=== PATIENT | male | born 1970 | race Caucasian/White ===

== ENCOUNTER 2016-10-20 21:06 | Emergency (ER) | payer BC ==
[2016-10-20 21:23] VITALS: O2SAT 97
[2016-10-20] MEDS ORDERED: Sodium Chloride 0.9% 1000 ML 1,000 ML IV STA (21:34)
--- NOTE | 2016-10-20 21:39 | ERPHSYRPT ---
- History of Present Illness Time Seen by Provider: 10/20/16 21:36 Source: patient, family Exam Limitations: no limitations Patient Subjective Stated Complaint: pt states while sitting on the couch at home, his heart began racing and he was having palpitations. states he had his bp taken and it was 160/120 manually by nurse while he was picking his daughter up Triage Nursing Assessment: pt alert and oriented,a snwers questions approp. pt ambulatoryw ith steady gait noted. respirations nonlabored with lungs cta. pupils equal and reactive. heart rate 72 sinus rhythm on monitor at this time. Physician History: pt states while sitting on the couch at home, his heart began racing and he was having palpitations. states he had his bp taken and it was 160/120 manually by nurse while he was picking his daughter up Timing/Duration: today Associated Symptoms: chest pain Allergies/Adverse Reactions: iv dye Allergy (Intermediate, Uncoded 10/20/16 21:32) Rash Home Medications: Aspirin 81 mg PO DAILY 01/23/13 [History] Ascorbic Acid [Vitamin C] 1,000 mg PO DAILY 09/13/16 [History] Fexofenadine HCl [Giana] 60 mg PO DAILY 09/13/16 [History] Garlic 1 each PO DAILY 09/13/16 [History] Gemfibrozil [Lopid] 600 mg PO BID 09/13/16 [History] Lactobacillus Acidophilus [Probiotic] 1 each PO BID 09/13/16 [History] Zinc 50 mg PO DAILY 09/13/16 [History] Hx Tetanus, Diphtheria Vaccination/Date Given: Yes Hx Influenza Vaccination/Date Given: No Hx Pneumococcal Vaccination/Date Given: No Immunizations Up to Date: Yes - Review of Systems Constitutional: No Fever, No Chills Eyes: No Symptoms Ears, Nose, & Throat: No Symptoms Respiratory: No Cough, No Dyspnea Cardiac: Chest Pain, No Edema, No Syncope Abdominal/Gastrointestinal: No Abdominal Pain, No Nausea, No Vomiting, No Diarrhea Genitourinary Symptoms: No Dysuria Musculoskeletal: No Back Pain, No Neck Pain Skin: No Rash Neurological: No Dizziness, No Focal Weakness, No Sensory Changes Psychological: No Symptoms Endocrine: No Symptoms All Other Systems: Reviewed and Negative - Past Medical History Pertinent Past Medical History: Yes Neurological History: No Pertinent History ENT History: No Pertinent History Cardiac History: High Cholesterol, Hypertension Respiratory History: Sleep Apnea Endocrine Medical History: No Pertinent History Musculoskeletal History: Arthritis GI Medical History: GERD, Gallbladder Disease, Ulcer, Other History: No Pertinent History Psycho-Social History: No Pertinent History Male Reproductive Disorders: No Pertinent History Other Medical History: hiatal hernia - Past Surgical History Past Surgical History: Yes Neuro Surgical History: No Pertinent History Cardiac: Cardiac Catheterization Respiratory: No Pertinent History Gastrointestinal: Appendectomy, Cholecystectomy Genitourinary: No Pertinent History Musculoskeletal: Orthopedic Surgery Male Surgical History: Vasectomy Other Surgical History: tendon repair patella - Social History Smoking Status: Former smoker Exposure to second hand smoke: No Drug Use: none Patient Lives Alone: No - Nursing Vital Signs Nursing Vital Signs: Initial Vital Signs Temperature 98.0 F Temperature Source Oral Pulse Rate 71 Respiratory Rate 16 Blood Pressure [] 126/86 Pain Intensity 0 - Physical Exam General Appearance: no apparent distress, alert Eye Exam: PERRL/EOMI, eyes nml inspection Ears, Nose, Throat Exam: normal ENT inspection, TMs normal, pharynx normal, moist mucous membranes Neck Exam: normal inspection, non-tender, supple, full range of motion Respiratory Exam: normal breath sounds, lungs clear, No respiratory distress Cardiovascular Exam: regular rate/rhythm, normal heart sounds, normal peripheral pulses Gastrointestinal/Abdomen Exam: soft, normal bowel sounds, No tenderness, No mass Back Exam: normal inspection, normal range of motion, No CVA tenderness, No vertebral tenderness Extremity Exam: normal inspection, normal range of motion, pelvis stable Neurologic Exam: alert, oriented x 3, cooperative, normal mood/affect, nml cerebellar function, nml station & gait, sensation nml, No motor deficits Skin Exam: normal color, warm, dry, No rash Lymphatic Exam: No adenopathy SpO2: 97 Oxygen Delivery: Room Air - Course Nursing assessment & vital signs reviewed: Yes - Radiology Exams Chest X-ray Interpretation: Reviewed by me Ordered Tests: Active Orders 24 hr Category Date Time Status Inspector Experimental Assembly STAT Care 10/20/16 21:34 Active EKG-ER Only STAT Care 10/20/16 21:34 Active Oxygen-ED Only NASAL CANNULA 2 lpm Care 10/20/16 21:34 Active CHEST 1 VIEW (PORTABLE) Stat Exams 10/20/16 21:35 Taken CBC W DIFF Stat Lab 10/20/16 21:35 Completed CMP Stat Lab 10/20/16 21:35 Completed TROPONIN Stat Lab 10/20/16 21:35 Completed Medication Summary Discontinued Medications Generic Name Dose Route Start Last Admin Trade Name Ayush PRN Reason Stop Dose Admin Sodium Chloride 1,000 mls @ 999 mls/hr 10/20/16 21:34 10/20/16 21:47 Sodium Chloride 0.9% 1000 Ml IV 10/20/16 22:34 999 mls/hr .Q1H1M STA Administration Sodium Chloride Confirm 10/20/16 21:42 Sodium Chloride 0.9% 1000 Ml Administered 10/20/16 21:43 Dose 1,000 mls @ ud .ROUTE .STK-MED ONE Metoprolol Tartrate 50 mg 10/20/16 21:43 10/20/16 21:47 Lopressor 50 Mg PO 10/20/16 21:44 50 mg STAT ONE Administration Metoprolol Tartrate Confirm 10/20/16 21:46 Lopressor 50 Mg Administered 10/20/16 21:47 Dose 50 mg .ROUTE .STK-MED ONE Lab/Rad Data: Laboratory Result Diagrams 10/20/16 21:35 10/20/16 21:35 Laboratory Results 10/20/16 10/20/16 10/20/16 Range/Units 21:35 21:35 21:35 WBC 7.1 (4.0-10.5) K/mm3 RBC 5.42 (4.1-5.6) M/mm3 Hgb 16.3 (12.5-18.0) gm/dl Hct 45.8 (42-50) % MCV 84.5 (78-100) fl MCH 30.1 (26-32) pg MCHC 35.6 (32-36) g/dl RDW 13.9 (11.5-14.0) % Plt Count 219 (150-450) K/mm3 MPV 10.2 H (6-9.5) fl Gran % 59.4 (36.0-66.0) % Lymphocytes % 29.3 (24.0-44.0) % Monocytes % 8.9 (0.0-12.0) % Eosinophils % 2.0 (0.00-5.0) % Basophils % 0.4 (0.0-0.4) % Basophils # 0.03 (0-0.4) Sodium 139 (136-145) mEq/L Potassium 3.4 L (3.5-5.1) mEq/L Chloride 102 (98-107) mEq/L Carbon Dioxide 24.6 (21-32) mEq/L Anion Gap 15.4 H (5-15) MEQ/L BUN 17 (9-20) mg/dL Creatinine 1.07 (0.55-1.30) mg/dl Estimated GFR > 60 ML/MIN Glucose 153 H (70-110) MG/DL Calcium 8.2 L (8.5-10.1) mg/dL Total Bilirubin 0.30 (0.2-1.0) mg/dL AST 33 (15-37) U/L ALT 38 (12-78) U/L Alkaline Phosphatase 62 (46-116) U/L Troponin I < 0.017 (0.000-0.056) ng/ml Serum Total Protein 7.5 (6.4-8.2) gm/dL Albumin 4.1 (3.4-5.0) g/dL - Progress Progress: improved Progress Note: 10/20/16 22:43 BP is 128/86. patient is feeling better Counseled pt/family regarding: lab results, diagnosis, need for follow-up, rad results - Departure Time of Disposition: 22:43 Departure Disposition: Home Clinical Impression: Hypertension, poor control Condition: Stable Critical Care Time: Yes Critical Care Time(excluding separately billable procedures): 30-74 minutes Referrals: PATY STALLWORTH [Primary Care Provider] - Instructions: Malignant Hypertension, Hypertension Additional Instructions: Please follow the instructions given to you. Please take your medication as prescribed if given. If symptoms recur or get worse, come back to the emergency room if you cannot reach your primary care physician, or call your primary care physician for an appointment. Again if your symptoms get worse, come back to the emergency room. Thanks for visiting emergency room, and let us take care of you. Prescriptions: Metoprolol Tartrate 25 mg [Lopressor 25MG Tab] 25 mg PO QHS #30 tab Lisinopril 5 mg [Zestril 5 MG] 5 mg PO QAM #30 tablet
[2016-10-20] MEDS ORDERED: Sodium Chloride 0.9% 1000 ML 1,000 ML ONE (21:42)
[2016-10-20] MEDS ORDERED: Lopressor 50 MG PO ONE (21:43)
[2016-10-20] MEDS ORDERED: Lopressor 50 MG ONE (21:46)
[2016-10-20 21:49] LABS: BASOPHIL % 0.4 % (0.0-0.4); Granulocytes % 59.4 % (36.0-66.0); Lymphocytes % 29.3 % (24.0-44.0); Mean Cell Volume 84.5 fl (78-100); Mean Corpuscular Hemoglobin 30.1 pg (26-32); Mean Platelet Volume 10.2 fl (6-9.5); Monocytes % 8.9 % (0.0-12.0); Platelet Count 219 K/mm3 (150-450); Red Blood Count 5.42 M/mm3 (4.1-5.6); Red Cell Distribution Width 13.9 % (11.5-14.0); White Blood Count 7.1 K/mm3 (4.0-10.5)
[2016-10-20 22:05] LABS: ALBUMIN 4.1 g/dL (3.4-5.0); ALKALINE PHOSPHATASE 62 U/L (46-116); ANION GAP 15.4 MEQ/L (5-15); BLOOD UREA NITROGEN 17 mg/dL (9-20); CHLORIDE 102 mEq/L (98-107); Carbon Dioxide 24.6 mEq/L (21-32); Glucose 153 MG/DL (70-110); Potassium 3.4 mEq/L (3.5-5.1); SODIUM 139 mEq/L (136-145)
[2016-10-20 22:16] LABS: SGPT/ALT 38 U/L (12-78)
[2016-10-20 22:28] VITALS: BP 126/86; PULSE 71
[2016-10-20 22:30] LABS: SGOT/AST 33 U/L (15-37)
[2016-10-20 22:38] LABS: Total Protein 7.5 gm/dL (6.4-8.2)
--- NOTE | 2016-10-21 08:10 | XRAY ---
Indication: Chest pain and elevated blood pressure. Comparison: September 02, 2013. Portable chest again demonstrates normal heart, lungs, and bony thorax.
== END 2016-10-20 23:00 | disposition home or self-care (01) ==
LOC: ED 21:06
DX: I10 Essential (primary) hypertension (principal); E78.00 Pure hypercholesterolemia, unspecified
CPT/HCPCS: 36000; 36415; 71010; 80053; 84484; 85025; 93005; 93041; 96360; 99284; A9270-GY

== ENCOUNTER 2016-11-15 07:57 | Day surgery (SDC) | payer BC ==
[2016-11-15] MEDS ORDERED: Lactated Ringers 1,000 ML IV SCH (09:00)
[2016-11-15 09:06] LABS: Mean Cell Volume 84.4 fl (78-100); Mean Platelet Volume 10.4 fl (6-9.5); Platelet Count 168 K/mm3 (150-450); Red Blood Count 5.63 M/mm3 (4.1-5.6); Red Cell Distribution Width 13.6 % (11.5-14.0); White Blood Count 6.3 K/mm3 (4.0-10.5)
[2016-11-15 09:07] LABS: Mean Corpuscular Hemoglobin 28.9 pg (26-32)
[2016-11-15 09:08] LABS: ANION GAP 12.7 MEQ/L (5-15); BLOOD UREA NITROGEN 9 mg/dL (9-20); CHLORIDE 103 mEq/L (98-107); Carbon Dioxide 28.1 mEq/L (21-32); Glucose 108 MG/DL (70-110); Potassium 3.8 mEq/L (3.5-5.1); SODIUM 140 mEq/L (136-145)
[2016-11-15 10:56] VITALS: O2SAT 95
[2016-11-15 11:13] VITALS: BP 119/72; PULSE 64
[2016-11-15] MEDS ORDERED: Lactated Ringers 1,000 ML IV ONE (13:47)
[2016-11-15] MEDS ORDERED: Ketamine HCl 50 MG/ML IV ONE (15:00)
[2016-11-15] MEDS ORDERED: DIPRIVAN 200 MG/20 ML IV ONE (15:00)
--- NOTE | 2016-11-16 08:01 | OP ---
PROCEDURE DATE/TIME: 11/15/201624 PREOPERATIVE DIAGNOSES: 1) Diarrhea. 2) Constipation. 3) GI bleeding. 4) Abdominal pain. POSTOPERATIVE DIAGNOSES: 1) Gastric diverticulum. 2) Duodenal polyp. 3) Moderate gastritis. 4) Moderate hiatal hernia approximately 4 cm sliding. 5) Normal colon. PROCEDURES: 1) EGD with hot forceps polypectomy and cold biopsy. 2) Colonoscopy to cecum. PROCEDURE PERFORMED BY: Molly Streeter M.D. ANESTHESIA: MAC. ESTIMATED BLOOD LOSS: Minimal. COMPLICATIONS: None. SPECIMENS: 1) Gastric diverticulum/mass biopsy. 2) Antral biopsy rule out Helicobacter pylori. 3) Duodenal polyp biopsy. PROCEDURE DETAILS: This is a 46 year-old gentleman who has had a wealth of GI symptoms over the past few years. He has had had some intermittent diarrhea and constipation. He has also noticed some intermittent GI bleeding and he has also had some abdominal pain on and off. He recently had Romy infection which he states he was treated by his primary care physician and his bleeding and abdominal pain has actually improved since being treated for this last week. However we will still proceed with the scope, EGD and colonoscopy due to his symptoms. He understands all of the risks, benefits, alternatives to the procedure. I did see him preoperatively and any remaining questions were answered and agreed to proceed. DESCRIPTION OF PROCEDURE: He was then placed in the left lateral decubitus position. A complete time out was performed. The scope was then entered into the mouth, oropharynx directly down into the esophagus, stomach and then into the duodenum. The second portion of the duodenum looked normal. In the first portion of the duodenum immediately past the pylorus there was a polypoid mucosal lesion that appeared to be benign but it was taken with hot forceps in its entirety and sent to pathology. This site was hemostatic after biopsy. There were no other lesions here and nothing was concerning for a malignancy. The scope was withdrawn back into the stomach. In the stomach in the upper portion of the body there is a small diverticulum this does have a slight hump to it and so I did take a biopsy of this site and it was labeled "gastric body diverticulum/mass biopsy" and we will check the pathology to make sure that this site is okay. It does not look malignant to me. It just looks like a diverticulum. Throughout the rest of his gastric body and antrum he did have some moderate gastritis with streaky inflammation throughout. On a retroflex view we can visualized approximate 4 cm sliding hiatal hernia this was of moderate size. I did take an antral biopsy with cold forceps and this site was hemostatic and we sent this for Helicobacter pylori. All biopsies were rereviewed. All sites were hemostatic. There were no other findings except those already noted. The stomach was desufflated. We with withdrew the scope back into the level of the esophagus. We were able to revisualize the moderate sized sliding hernia and then we carefully removed the scope. The rest of the esophagus looked absolutely normal. There were no issues here and there did not appear to be any Romy in the esophagus on gross exam. The scope was entirely removed. The patient tolerated this well. He was repositioned for colonoscopy. First a rectal exam was done and this was normal. The scope was then entered and carefully advanced to the level of the cecum. The patient did have a moderate amount of liquid stool which a small or flat lesion could be missed because of the prep. We were able to navigate past this and get all the way to the level of the cecum. The patient has had prior appendectomy before. His ileocecal valve was identified and this appeared normal. The rest of the cecum appeared normal. The scope was then carefully withdrawn taking a circumferential view and suctioning as much of the stool as possible. Very slightly limited view. There were no obvious large masses or issues. The mucosa appeared very healthy throughout the entirety of the colon. I did not see any issues. There were not even any diverticula. Colon looked excellent. We completely removed the scope. I did not find anything in the cecum, ascending, transverse, descending, sigmoid or rectum that was remarkable and so we will plan to have the patient repeat his colonoscopy should he have any new symptoms or worsening symptoms and definitely he will need a screening colonoscopy at age 52 which will be in approximately six years. With regards to his EGD, we will plan to do another EGD pending his symptoms and as well in about six months' time to insure stability of this gastric diverticulum area as well as the site of the duodenal polyp. I also will await results for these and I have started the patient on antacid medication to see if this will improve his symptoms as well.
== END 2016-11-15 11:17 | disposition home or self-care (01) ==
LOC: SDC 07:57
PROVIDERS: ATTEND Surgery
PROC: 0DB98ZX Excision of Duodenum, Via Natural or Artificial Opening Endoscopic, Diagnostic (ICD-10-PCS; principal; 2016-11-15)
PROC: 0DB78ZX Excision of Stomach, Pylorus, Via Natural or Artificial Opening Endoscopic, Diagnostic (ICD-10-PCS; 2016-11-15)
PROC: 0DB68ZX Excision of Stomach, Via Natural or Artificial Opening Endoscopic, Diagnostic (ICD-10-PCS; 2016-11-15)
PROC: 0DJD8ZZ Inspection of Lower Intestinal Tract, Via Natural or Artificial Opening Endoscopic (ICD-10-PCS; 2016-11-15)
DX: K31.4 Gastric diverticulum (principal); K31.7 Polyp of stomach and duodenum; K29.70 Gastritis, unspecified, without bleeding; K44.9 Diaphragmatic hernia without obstruction or gangrene; G47.33 Obstructive sleep apnea (adult) (pediatric); K92.2 Gastrointestinal hemorrhage, unspecified
CPT/HCPCS: 00740; 00810; 36415; 80048; 85027; 88305; 88312; J2704

== ENCOUNTER 2021-12-20 08:32 | Emergency (ER) | payer OTHER ==
[2021-12-20 08:58] LABS: Absolute Neutrophil Ct (ANC) 3.32 x10^3/uL (1.4-6.9); Basophil (Absolute #) 0.05 x10^3/uL (0-0.4); Eosinophil % 2.1 % (0.00-5.0); Eosinophil (Absolute #) 0.11 x10^3/uL (0-0.5); Hematocrit 48.4 % (42-50); Hemoglobin 16.2 g/dL (12.5-18.0); Lymphocyte (Absolute #) 1.43 x10^3/uL (1.0-4.6); Lymphocytes % 26.7 % (24.0-44.0); Mean Cell Volume 85.1 fL (78-100); Mean Corpuscular Hemoglobin 28.5 pg (26-32); Mean Corpuscular Hgb Concent. 33.5 g/dL (32-36); Mean Platelet Volume 9.6 fL (7.5-11.0); Monocyte (Absolute #) 0.43 x10^3/uL (0.0-1.3); Neutrophil % 62.1 % (36.0-66.0); Platelet Count 155 x10^3/uL (150-450); Red Blood Count 5.69 x10^6/uL (4.1-5.6); White Blood Count 5.4 x10^3/uL (4.0-10.5)
[2021-12-20 09:13] LABS: PROTIME 10.6 SECONDS (9.4-12.5); PTT 27.3 SECONDS (25.1-36.5)
--- NOTE | 2021-12-20 09:16 | ERPHSYRPT ---
- History of Present Illness Historian: patient, other () Exam Limitations: no limitations Patient Subjective Stated Complaint: pt to ER with complaints of "feeling bad" since . pt states he just got back from [place] last week. pt with some chest pain in left side of chest. pt with some left arm pain. pt states hx of cardiac. pt with htn at home. Triage Nursing Assessment: Pt to ER with . pt ambulatory. skin pwd. pt alert and oriented x 4. pt appears to be in no distress. pt with left sided chest pain with some pain in left shoulder. denies n/v, but states lightheaded, dizziness. Physician History: 51 yo wm w cc of chest pain. Pt has chest pain every day and has known CAD. He denies OK/stents/CABG. Pt is painfree at present. What seemed to worry pt is that he is having more malaise than usual. Pain is L sided wo radiation. He denies N/V/Dyspnea/diaphoresis. Pt has hyperlipidemia/HTN/FH CAD. Pt has had a mild HE and mild coryza wo cough. Pain is described as dull and sharp. Nothing seems to make it better or worse. Timing/Duration: today (Chronic) Activities at Onset: rest Quality: dullness, sharpness Location: substernal (L chest) Chest Pain Radiation: no radiation Severity of Pain-Max: moderate Severity of Pain-Current: none Modifying Factors: Improves With: nothing Associated Symptoms: fatigue, weakness, No nausea, No vomiting, No palpitations, No heartburn, No abdominal pain, No shortness of breath, No cough, No hurts to breathe, No diaphoresis, No chills, No fever, No swelling/lump in chest, No syncope, No rash, No headache, No dizziness, No edema, No back pain Prior Chest Pain/Cardiac Workup: cardiac cath Nitro Today/Relief: no nitro taken today Aspirin Treatment Today: 81 mg x 1, provided at home Allergies/Adverse Reactions: iv dye Allergy (Intermediate, Uncoded 12/20/21 08:50) Rash Home Medications: Aspirin 81 mg PO DAILY 01/23/13 [History] Lactobacillus Acidophilus [Probiotic] 1 each PO BID 09/13/16 [History] Zinc 50 mg PO DAILY 09/13/16 [History] Amlodipine Besylate 1 tab PO DAILY 12/20/21 [History] Isosorbide Mononitrate [Isosorbide Mononitrate ER] 1 tab PO DAILY 12/20/21 [History] Metoprolol Succinate 1 tab PO DAILY 12/20/21 [History] [place]-3 Fatty Acids/Fish Oil [Fish Oil 1,000 mg Capsule] 1 cap PO DAILY 12/20/21 [History] Hx Tetanus, Diphtheria Vaccination/Date Given: Yes Hx Influenza Vaccination/Date Given: No Hx Pneumococcal Vaccination/Date Given: No Travel Risk - International Travel Have you traveled outside of the country in past 3 weeks: No - Coronavirus Screening Are you exhibiting any of the following symptoms?: Yes Symptoms: Headaches/Body Aches/Fatigue Close contact with a COVID-19 positive Pt in past 14-21 Days: No - Vaccine Status Have you recieved a Covid-19 vaccination: No - Review of Systems Constitutional: No Symptoms, Fatigue, Malaise Eyes: No Symptoms Ears, Nose, & Throat: No Symptoms Respiratory: No Symptoms Cardiac: No Symptoms, Chest Pain Abdominal/Gastrointestinal: No Symptoms Genitourinary Symptoms: No Symptoms Musculoskeletal: No Symptoms Skin: No Symptoms Neurological: No Symptoms Psychological: No Symptoms Endocrine: No Symptoms Hematologic/Lymphatic: No Symptoms Immunological/Allergic: No Symptoms - Past Medical History Pertinent Past Medical History: Yes Neurological History: No Pertinent History ENT History: No Pertinent History Cardiac History: High Cholesterol Respiratory History: Sleep Apnea Endocrine Medical History: No Pertinent History Musculoskeletal History: Arthritis GI Medical History: GERD, Gallbladder Disease, Ulcer, Other History: No Pertinent History Psycho-Social History: No Pertinent History Male Reproductive Disorders: No Pertinent History Other Medical History: hiatal hernia - Past Surgical History Past Surgical History: Yes Neuro Surgical History: No Pertinent History Cardiac: Cardiac Catheterization Respiratory: No Pertinent History Gastrointestinal: Appendectomy, Cholecystectomy Genitourinary: No Pertinent History Musculoskeletal: Orthopedic Surgery Male Surgical History: Vasectomy Other Surgical History: tendon repair patella - Social History Smoking Status: Former smoker Exposure to second hand smoke: No Drug Use: none Patient Lives Alone: No - Nursing Vital Signs Nursing Vital Signs: Initial Vital Signs Temperature 97.5 F 12/20/21 08:43 Pulse Rate 68 12/20/21 08:43 Respiratory Rate 16 12/20/21 08:43 Blood Pressure 167/97 12/20/21 08:43 O2 Sat by Pulse Oximetry 97 12/20/21 08:43 Pain Scale Pain Intensity 0 Hypertensive - Physical Exam General Appearance: no apparent distress Eye Exam: PERRL/EOMI, eyes nml inspection Ears, Nose, Throat Exam: normal ENT inspection, TMs normal, pharynx normal, moist mucous membranes Neck Exam: normal inspection, non-tender, supple, full range of motion, No meningismus, No mass, No Brudzinski, No Kernig's, No carotid bruit Respiratory Exam: normal breath sounds, lungs clear, airway intact, No chest tenderness, No respiratory distress Cardiovascular Exam: regular rate/rhythm, normal heart sounds, normal peripheral pulses, capillary refill <2 sec, No murmur Gastrointestinal/Abdomen Exam: soft, normal bowel sounds, tenderness (Mild epigastric TTP wo guarding or rebound) Back Exam: normal inspection, normal range of motion, CVA tenderness, No vertebral tenderness Extremity Exam: normal inspection, normal range of motion Neurologic Exam: alert, oriented x 3, cooperative, concrete float maker II-XII nml as tested, normal mood/affect, nml cerebellar function, nml station & gait, sensation nml Skin Exam: normal color, warm Lymphatic Exam: No adenopathy SpO2 Interpretation: normal SpO2: 97 O2 Delivery: Room Air - Course Nursing assessment & vital signs reviewed: Yes EKG Interpreted by Me: RATE (NSr/Rate 65/Normal QT-QTc/No acute ST changes) - Radiology Exams Chest X-ray Interpretation: Discussed w/ radiologist (CXR neg) Ordered Tests: Active Orders 24 hr Category Date Time Status EKG-ER Only STAT Care 12/20/21 08:44 Completed IV Insertion STAT Care 12/20/21 08:44 Completed CHEST 1 VIEW (PORTABLE) Stat Exams 12/20/21 09:01 Completed AMYLASE Stat Lab 12/20/21 09:47 Completed CBC W DIFF Stat Lab 12/20/21 08:45 Completed CMP Stat Lab 12/20/21 08:45 Completed D-DIMER QUANTITATIVE Stat Lab 12/20/21 09:00 Completed LIPASE Stat Lab 12/20/21 09:47 Completed MAGNESIUM Stat Lab 12/20/21 08:45 Completed NT PRO BNP Stat Lab 12/20/21 08:45 Completed PROTIME WITH INR Stat Lab 12/20/21 08:45 Completed PTT Stat Lab 12/20/21 08:45 Completed TROPONIN Q4H Lab 12/20/21 08:45 Completed TROPONIN Q4H Lab 12/20/21 11:46 Completed Lab/Rad Data: Laboratory Result Diagrams 12/20/21 08:45 12/20/21 08:45 Laboratory Results 12/20/21 12/20/21 12/20/21 Range/Units 11:46 09:47 09:00 WBC (4.0-10.5) x10^3/uL RBC (4.1-5.6) x10^6/uL Hgb (12.5-18.0) g/dL Hct (42-50) % MCV (78-100) fL MCH (26-32) pg MCHC (32-36) g/dL RDW (11.5-14.0) % Plt Count (150-450) x10^3/uL MPV (7.5-11.0) fL Gran % (36.0-66.0) % Immature Gran % (Auto) (0.00-0.4) % Nucleat RBC Rel Count (0.00-0.1) % Eos # (Auto) (0-0.5) x10^3/uL Immature Gran # (Auto) (0.00-0.03) x10^3u/L Absolute Lymphs (auto) (1.0-4.6) x10^3/uL Absolute Monos (auto) (0.0-1.3) x10^3/uL Absolute Nucleated RBC (0.00-0.01) x10^3u/L Lymphocytes % (24.0-44.0) % Monocytes % (0.0-12.0) % Eosinophils % (0.00-5.0) % Basophils % (0.0-0.4) % Absolute Granulocytes (1.4-6.9) x10^3/uL Basophils # (0-0.4) x10^3/uL PT (9.4-12.5) SECONDS INR (0.8-3.0) APTT (25.1-36.5) SECONDS D-Dimer < 0.19 (0.0-0.50) mg/L Sodium (137-145) mmol/L Potassium (3.5-5.1) mmol/L Chloride (98-107) mmol/L Carbon Dioxide (22-30) mmol/L Anion Gap (5-15) MEQ/L BUN (9-20) mg/dL Creatinine (0.66-1.25) mg/dL Estimated GFR ML/MIN Glucose (74-106) mg/dL Calcium (8.4-10.2) mg/dL Magnesium (1.6-2.3) mg/dL Total Bilirubin (0.2-1.3) mg/dL AST (17-59) U/L ALT (0-50) U/L Alkaline Phosphatase (38-126) U/L Troponin I < 0.012 (0.000-0.034) ng/mL NT-Pro-B Natriuret Pep (0-450) pg/mL Serum Total Protein (6.3-8.2) g/dL Albumin (3.5-5.0) g/dL Amylase 118 H (30-110) U/L Lipase 239 (23-300) U/L Influenza Type A Ag (NEGATIVE) Influenza Type B Ag (NEGATIVE) RSV (PCR) (Negative) SARS-CoV-2 (PCR) (NEGATIVE) 12/20/21 12/20/21 12/20/21 Range/Units 08:53 08:45 08:45 WBC (4.0-10.5) x10^3/uL RBC (4.1-5.6) x10^6/uL Hgb (12.5-18.0) g/dL Hct (42-50) % MCV (78-100) fL MCH (26-32) pg MCHC (32-36) g/dL RDW (11.5-14.0) % Plt Count (150-450) x10^3/uL MPV (7.5-11.0) fL Gran % (36.0-66.0) % Immature Gran % (Auto) (0.00-0.4) % Nucleat RBC Rel Count (0.00-0.1) % Eos # (Auto) (0-0.5) x10^3/uL Immature Gran # (Auto) (0.00-0.03) x10^3u/L Absolute Lymphs (auto) (1.0-4.6) x10^3/uL Absolute Monos (auto) (0.0-1.3) x10^3/uL Absolute Nucleated RBC (0.00-0.01) x10^3u/L Lymphocytes % (24.0-44.0) % Monocytes % (0.0-12.0) % Eosinophils % (0.00-5.0) % Basophils % (0.0-0.4) % Absolute Granulocytes (1.4-6.9) x10^3/uL Basophils # (0-0.4) x10^3/uL PT 10.6 (9.4-12.5) SECONDS INR 1.00 (0.8-3.0) APTT 27.3 (25.1-36.5) SECONDS D-Dimer (0.0-0.50) mg/L Sodium (137-145) mmol/L Potassium (3.5-5.1) mmol/L Chloride (98-107) mmol/L Carbon Dioxide (22-30) mmol/L Anion Gap (5-15) MEQ/L BUN (9-20) mg/dL Creatinine (0.66-1.25) mg/dL Estimated GFR ML/MIN Glucose (74-106) mg/dL Calcium (8.4-10.2) mg/dL Magnesium (1.6-2.3) mg/dL Total Bilirubin (0.2-1.3) mg/dL AST (17-59) U/L ALT (0-50) U/L Alkaline Phosphatase (38-126) U/L Troponin I < 0.012 (0.000-0.034) ng/mL NT-Pro-B Natriuret Pep (0-450) pg/mL Serum Total Protein (6.3-8.2) g/dL Albumin (3.5-5.0) g/dL Amylase (30-110) U/L Lipase (23-300) U/L Influenza Type A Ag NEGATIVE (NEGATIVE) Influenza Type B Ag NEGATIVE (NEGATIVE) RSV (PCR) NEGATIVE (Negative) SARS-CoV-2 (PCR) NEGATIVE (NEGATIVE) 12/20/21 12/20/21 Range/Units 08:45 08:45 WBC 5.4 (4.0-10.5) x10^3/uL RBC 5.69 H (4.1-5.6) x10^6/uL Hgb 16.2 (12.5-18.0) g/dL Hct 48.4 (42-50) % MCV 85.1 (78-100) fL MCH 28.5 (26-32) pg MCHC 33.5 (32-36) g/dL RDW 13.0 (11.5-14.0) % Plt Count 155 (150-450) x10^3/uL MPV 9.6 (7.5-11.0) fL Gran % 62.1 (36.0-66.0) % Immature Gran % (Auto) 0.2 (0.00-0.4) % Nucleat RBC Rel Count 0.0 (0.00-0.1) % Eos # (Auto) 0.11 (0-0.5) x10^3/uL Immature Gran # (Auto) 0.01 (0.00-0.03) x10^3u/L Absolute Lymphs (auto) 1.43 (1.0-4.6) x10^3/uL Absolute Monos (auto) 0.43 (0.0-1.3) x10^3/uL Absolute Nucleated RBC 0.00 (0.00-0.01) x10^3u/L Lymphocytes % 26.7 (24.0-44.0) % Monocytes % 8.0 (0.0-12.0) % Eosinophils % 2.1 (0.00-5.0) % Basophils % 0.9 (0.0-0.4) % Absolute Granulocytes 3.32 (1.4-6.9) x10^3/uL Basophils # 0.05 (0-0.4) x10^3/uL PT (9.4-12.5) SECONDS INR (0.8-3.0) APTT (25.1-36.5) SECONDS D-Dimer (0.0-0.50) mg/L Sodium 135 L (137-145) mmol/L Potassium 4.0 (3.5-5.1) mmol/L Chloride 101 (98-107) mmol/L Carbon Dioxide 26 (22-30) mmol/L Anion Gap 12.5 (5-15) MEQ/L BUN 21 H (9-20) mg/dL Creatinine 0.92 (0.66-1.25) mg/dL Estimated GFR > 60.0 ML/MIN Glucose 123 H (74-106) mg/dL Calcium 8.3 L (8.4-10.2) mg/dL Magnesium 2.1 (1.6-2.3) mg/dL Total Bilirubin 0.40 (0.2-1.3) mg/dL AST 27 (17-59) U/L ALT 33 (0-50) U/L Alkaline Phosphatase 127 H (38-126) U/L Troponin I (0.000-0.034) ng/mL NT-Pro-B Natriuret Pep 43.0 (0-450) pg/mL Serum Total Protein 7.7 (6.3-8.2) g/dL Albumin 4.4 (3.5-5.0) g/dL Amylase (30-110) U/L Lipase (23-300) U/L Influenza Type A Ag (NEGATIVE) Influenza Type B Ag (NEGATIVE) RSV (PCR) (Negative) SARS-CoV-2 (PCR) (NEGATIVE) - Progress Progress: improved Progress Note: 12/20/21 13:[address] Yang EXPLORATION ENGINEER, will arrange office follow up this week Pt w minimal chest pain during visit. Pain lasts less than 1 minute and is atypical. Troponin neg x2/VSS during stay. 12/20/21 13:10 12/21/21 01:26 Counseled pt/family regarding: lab results, diagnosis, need for follow-up, rad results - Departure Departure Disposition: Home Clinical Impression: Chest pain Condition: Stable Critical Care Time: No Referrals: JAIME COLE MD [Primary Care Provider] - Follow up/PCP as directed Instructions: Chest Pain (DC) Additional Instructions: Follow up with Dr. Yang Return to ER for increasing chest pain or shortness of breath
--- NOTE | 2021-12-20 09:18 | XRAY ---
Indication: Chest pain. Comparison: October 20, 2016 Portable chest again demonstrates normal heart and lungs. Bony thorax intact with minimal degenerative changes. No new/acute findings.
[2021-12-20 09:19] LABS: ALBUMIN 4.4 g/dL (3.5-5.0); ALKALINE PHOSPHATASE 127 U/L (38-126); ANION GAP 12.5 MEQ/L (5-15); BLOOD UREA NITROGEN 21 mg/dL (9-20); CHLORIDE 101 mmol/L (98-107); Calcium 8.3 mg/dL (8.4-10.2); Carbon Dioxide 26 mmol/L (22-30); Creatinine 1 0.92 mg/dL (0.66-1.25); EST GLOMERULAR FILTRATION RATE > 60.0 ML/MIN; Glucose 123 mg/dL (74-106); MAGNESIUM 2.1 mg/dL (1.6-2.3); SGOT/AST 27 U/L (17-59); SGPT/ALT 33 U/L (0-50); SODIUM 135 mmol/L (137-145); Total Protein 7.7 g/dL (6.3-8.2)
[2021-12-20 09:37] LABS: INFLUENZA A NEGATIVE (NEGATIVE); INFLUENZA B NEGATIVE (NEGATIVE); RESPIRATORY SYNCTIAL VIRUS NEGATIVE (Negative); SARS-CoV-2 Xpert Express NEGATIVE (NEGATIVE)
[2021-12-20 09:59] LABS: AMYLASE 118 U/L (30-110); LIPASE 239 U/L (23-300)
[2021-12-20 13:17] VITALS: BP 117/74; PULSE 65
[2021-12-21 01:27] VITALS: O2SAT 97
== END 2021-12-20 13:17 | disposition home or self-care (01) ==
LOC: ED 08:32
DX: R07.9 Chest pain, unspecified (principal); R53.81 Other malaise; R51.9 Headache, unspecified; R09.81 Nasal congestion; E78.5 Hyperlipidemia, unspecified; I10 Essential (primary) hypertension; Z79.899 Other long term (current) drug therapy; Z28.310 Unvaccinated for COVID-19
CPT/HCPCS: 0241U; 36000; 36415; 71045; 80053; 82150; 83690; 83735; 83880; 84484; 85025; 85379; 85610; 85730; 93005; 99284

== ENCOUNTER 2023-06-21 05:56 | Emergency (ER) | payer OTHER ==
[2023-06-21 06:03] VITALS: TEMP 98.1
[2023-06-21] MEDS ORDERED: Sodium Chloride 0.9% 1000 ML 1,000 ML ONE (06:39)
[2023-06-21] MEDS ORDERED: Zofran 4 MG/2 ML VIAL ONE (06:39)
[2023-06-21 06:41] LABS: Absolute Neutrophil Ct (ANC) 10.29 x10^3/uL (1.4-6.9); BASOPHIL % 0.2 % (0.0-0.4); Basophil (Absolute #) 0.02 x10^3/uL (0-0.4); Eosinophil % 0.8 % (0.00-5.0); Eosinophil (Absolute #) 0.09 x10^3/uL (0-0.5); Hematocrit 52.1 % (42-50); Hemoglobin 17.7 g/dL (12.5-18.0); IMMATURE GRAN # 0.05 x10^3u/L (0.00-0.03); IMMATURE GRAN % 0.4 % (0.00-0.4); Lymphocyte (Absolute #) 0.65 x10^3/uL (1.0-4.6); Lymphocytes % 5.6 % (24.0-44.0); Mean Corpuscular Hemoglobin 29.5 pg (26-32); Mean Platelet Volume 9.8 fL (7.5-11.0); Monocyte (Absolute #) 0.47 x10^3/uL (0.0-1.3); Monocytes % 4.1 % (0.0-12.0); Neutrophil % 88.9 % (36.0-66.0); Platelet Count 183 x10^3/uL (150-450); Red Blood Count 5.99 x10^6/uL (4.1-5.6); Red Cell Distribution Width 13.4 % (11.5-14.0); White Blood Count 11.6 x10^3/uL (4.0-10.5)
[2023-06-21] MEDS: Sodium Chloride 0.9% 1000 ML 1,000 ML IV STA (06:44)
[2023-06-21] MEDS: Zofran 4 MG/2 ML VIAL IV ONE (06:44)
[2023-06-21 06:50] LABS: ALBUMIN 4.9 g/dL (3.5-5.0); ANION GAP 17.5 MEQ/L (5-15); Calcium 8.9 mg/dL (8.4-10.2); Creatinine 1 0.93 mg/dL (0.66-1.25); Potassium 4.1 mmol/L (3.5-5.1); Total Protein 8.4 g/dL (6.3-8.2)
[2023-06-21 07:13] LABS: INFLUENZA A NEGATIVE (NEGATIVE); INFLUENZA B NEGATIVE (NEGATIVE); RESPIRATORY SYNCTIAL VIRUS NEGATIVE (NEGATIVE); SARS-CoV-2 Xpert Express NEGATIVE (NEGATIVE)
--- NOTE | 2023-06-21 07:54 | ERPHSYRPT ---
- History of Present Illness Time Seen by Provider: 06/21/23 07:05 Historian: patient Exam Limitations: no limitations Patient Subjective Stated Complaint: abd pain, nausea, vomiting, indigestion, headache, body aches, fatigue, weakness Triage Nursing Assessment: Pt ambulated into ER without diff, spouse at bedside. Pt alert and oriented x4. Pt c/o abd pain, nausea, vomiting, indigestion, headache, body aches, and fatigue since last night around 10:30 pm. Lungs clear, heart tones reg, abd lg, soft with active bs x4 quad, tender on palpation. LBM 06/20/23. Pt does have a hiatal hernia. Pt denies any chest pain or sob. Physician History: This is a 52-year-old white male patient of Dr. Cole who is obese and presents with bodyaches, nausea, vomiting, indigestion, headache fatigue and weakness symptoms that began last evening. Patient was in [facility] yesterday during the day and took a plane back to [place] yesterday afternoon. Patient was exposed to thousands of individuals but no known individuals who have had similar symptoms or been diagnosed with viral illness. Patient denies chest pain and he denies shortness of breath. Patient has known hiatal hernia which she is to see a surgeon to schedule a surgical procedure in July 2023. Patient does see a steel placer, Dr. Yang. Within the last 6 months he underwent a cardiac nuclear medicine scan which did not show any significant coronary artery vessel disease. He gets this study done approximately every other year. Patient has a history of hypertension and chronic angina. Timing/Duration: yesterday Activities at Onset: none Quality: aching Abdominal Pain Onset Location: generalized abdomen Pain Radiation: no radiation Severity of Pain-Max: mild Severity of Pain-Current: mild Modifying Factors: Improves With: vomiting Associated Symptoms: headache, loss of appetite, nausea, vomiting, weakness, No chest pain, No shortness of breath Allergies/Adverse Reactions: iv dye Allergy (Intermediate, Uncoded 06/21/23 06:18) Rash Home Medications: Aspirin 81 mg PO DAILY 01/23/13 [History] Amlodipine Besylate 1 tab PO DAILY 12/20/21 [History] Isosorbide Mononitrate [Isosorbide Mononitrate ER] 1 tab PO DAILY 12/20/21 [History] Metoprolol Succinate 1 tab PO DAILY 12/20/21 [History] Sylvia-3 Fatty Acids/Fish Oil [Fish Oil 1,000 mg Capsule] 2 cap PO DAILY 12/20/21 [History] Hx Tetanus, Diphtheria Vaccination/Date Given: (unknown) Hx Influenza Vaccination/Date Given: No Hx Pneumococcal Vaccination/Date Given: No Travel Risk - International Travel Have you traveled outside of the country in past 3 weeks: No - Coronavirus Screening Are you exhibiting any of the following symptoms?: Yes Symptoms: Vomiting/Diarrhea, Headaches/Body Aches/Fatigue Close contact with a COVID-19 positive Pt in past 14-21 Days: No - Vaccine Status Have you recieved a Covid-19 vaccination: No - Review of Systems Constitutional: Weakness Eyes: No Symptoms Ears, Nose, & Throat: No Symptoms Respiratory: No Symptoms Cardiac: No Symptoms Abdominal/Gastrointestinal: Abdominal Pain, Nausea, Vomiting, Appetite Changes Genitourinary Symptoms: No Symptoms Musculoskeletal: Arthralgias, Myalgias Skin: No Symptoms Neurological: No Symptoms Psychological: No Symptoms Endocrine: No Symptoms Hematologic/Lymphatic: No Symptoms Immunological/Allergic: No Symptoms All Other Systems: Reviewed and Negative - Past Medical History Pertinent Past Medical History: Yes Neurological History: No Pertinent History ENT History: No Pertinent History Cardiac History: Coronary Artery Disease, High Cholesterol Respiratory History: Sleep Apnea Endocrine Medical History: No Pertinent History Musculoskeletal History: Arthritis GI Medical History: GERD, Gallbladder Disease, Hernia, Ulcer, Other History: No Pertinent History Psycho-Social History: No Pertinent History Male Reproductive Disorders: No Pertinent History Other Medical History: hiatal hernia - Past Surgical History Past Surgical History: Yes Neuro Surgical History: No Pertinent History Cardiac: Cardiac Catheterization Respiratory: No Pertinent History Gastrointestinal: Appendectomy, Cholecystectomy Genitourinary: No Pertinent History Musculoskeletal: Orthopedic Surgery Male Surgical History: Vasectomy Other Surgical History: tendon repair patella - Social History Smoking Status: Former smoker Exposure to second hand smoke: No Drug Use: none Patient Lives Alone: No - Nursing Vital Signs Nursing Vital Signs: Initial Vital Signs Temperature 98.1 F 06/21/23 06:02 Pulse Rate 101 H 06/21/23 06:02 Respiratory Rate 18 06/21/23 06:02 Blood Pressure 146/100 06/21/23 06:02 O2 Sat by Pulse Oximetry 96 06/21/23 06:02 Pain Scale Pain Intensity 0 - Physical Exam General Appearance: no apparent distress, alert, anxiety, obese Eye Exam: PERRL/EOMI, eyes nml inspection Ears, Nose, Throat Exam: normal ENT inspection, moist mucous membranes Neck Exam: normal inspection, non-tender, supple, full range of motion Respiratory Exam: normal breath sounds, lungs clear, airway intact, No chest tenderness, No respiratory distress Cardiovascular Exam: regular rate/rhythm, normal heart sounds, normal peripheral pulses Gastrointestinal/Abdomen Exam: soft, normal bowel sounds, No tenderness Rectal Exam: not done Back Exam: normal inspection, normal range of motion, No CVA tenderness, No vertebral tenderness Extremity Exam: normal inspection, normal range of motion, pelvis stable Neurologic Exam: alert, oriented x 3, cooperative, clinical applications specialist II-XII nml as tested, normal mood/affect, nml cerebellar function, nml station & gait, sensation nml Skin Exam: normal color, warm, dry Lymphatic Exam: No adenopathy SpO2 Interpretation: normal SpO2: 96 O2 Delivery: Room Air - Course Nursing assessment & vital signs reviewed: Yes EKG Interpreted by Me: RATE (97), Sinus Rhythm, NORMAL AXIS, NORMAL INTERVALS, NORMAL QRS, NORMAL ST-T, Other (No acute ischemic changes on today's twelve-lead EKG.) Ordered Tests: Active Orders 24 hr Category Date Time Status EKG-ER Only STAT Care 06/21/23 06:36 Active IV Insertion STAT Care 06/21/23 06:36 Active ABDOMEN AND PELVIS W/0 CONTRAS [CT] Stat Exams 06/21/23 06:36 Taken CBC W DIFF Stat Lab 06/21/23 06:40 Completed CMP Stat Lab 06/21/23 06:40 Completed LIPASE Stat Lab 06/21/23 06:40 Completed MONO SCREEN Stat Lab 06/21/23 06:20 Completed TROPONIN Q4H Lab 06/21/23 06:40 Completed TROPONIN Q4H Lab 06/21/23 10:45 Ordered TROPONIN Q4H Lab 06/21/23 14:45 Ordered UA W/RFX UR CULTURE Stat Lab 06/21/23 06:36 Ordered Medication Summary Discontinued Medications Generic Name Dose Route Start Last Admin Trade Name Freq PRN Reason Stop Dose Admin Sodium Chloride 1,000 mls @ 999 mls/hr 06/21/23 06:36 06/21/23 07:59 Sodium Chloride 0.9% 1000 Ml IV 06/21/23 07:36 Infused .Q1H1M STA Infusion Sodium Chloride Confirm 06/21/23 06:39 Sodium Chloride 0.9% 1000 Ml Administered 06/21/23 06:40 Dose 1,000 mls @ ud .ROUTE .STK-MED ONE Sodium Chloride 500 mls @ 500 mls/hr 06/21/23 08:15 06/21/23 08:27 Sodium Chloride 0.9% 500 Ml IV 06/21/23 09:14 500 mls/hr .Q1H ONE Administration Sodium Chloride Confirm 06/21/23 08:26 Sodium Chloride 0.9% 500 Ml Administered 06/21/23 08:27 Dose 500 mls @ ud IV .STK-MED ONE Ondansetron HCl 4 mg 06/21/23 06:36 06/21/23 06:44 Ondansetron Hcl 4 Mg/2 Ml Vial IV 06/21/23 06:37 4 mg STAT ONE Administration Ondansetron HCl Confirm 06/21/23 06:39 Ondansetron Hcl 4 Mg/2 Ml Vial Administered 06/21/23 06:40 Dose 4 mg .ROUTE .STK-MED ONE Lab/Rad Data: Laboratory Result Diagrams 06/21/23 06:40 06/21/23 06:40 Laboratory Results 06/21/23 06/21/23 06/21/23 Range/Units 08:55 06:40 06:40 WBC (4.0-10.5) x10^3/uL RBC (4.1-5.6) x10^6/uL Hgb (12.5-18.0) g/dL Hct (42-50) % MCV (78-100) fL MCH (26-32) pg MCHC (32-36) g/dL RDW (11.5-14.0) % Plt Count (150-450) x10^3/uL MPV (7.5-11.0) fL Gran % (36.0-66.0) % Immature Gran % (Auto) (0.00-0.4) % Nucleat RBC Rel Count (0.00-0.1) % Eos # (Auto) (0-0.5) x10^3/uL Immature Gran # (Auto) (0.00-0.03) x10^3u/L Absolute Lymphs (auto) (1.0-4.6) x10^3/uL Absolute Monos (auto) (0.0-1.3) x10^3/uL Absolute Nucleated RBC (0.00-0.01) x10^3u/L Lymphocytes % (24.0-44.0) % Monocytes % (0.0-12.0) % Eosinophils % (0.00-5.0) % Basophils % (0.0-0.4) % Absolute Granulocytes (1.4-6.9) x10^3/uL Basophils # (0-0.4) x10^3/uL Sodium (137-145) mmol/L Potassium (3.5-5.1) mmol/L Chloride (98-107) mmol/L Carbon Dioxide (22-30) mmol/L Anion Gap (5-15) MEQ/L BUN (9-20) mg/dL Creatinine (0.66-1.25) mg/dL Estimated GFR ML/MIN Glucose (74-106) mg/dL Calcium (8.4-10.2) mg/dL Total Bilirubin (0.2-1.3) mg/dL AST (17-59) U/L ALT (0-50) U/L Alkaline Phosphatase (38-126) U/L Troponin I < 0.012 (0.000-0.034) ng/mL Serum Total Protein (6.3-8.2) g/dL Albumin (3.5-5.0) g/dL Lipase 250 (23-300) U/L Urine Color Yellow (Yellow) Urine Appearance Clear (Clear) Urine pH 5.0 (4.6-8.0) Ur Specific [place] 1.020 (1.005-1.030) Urine Protein Negative (Negative) Urine Glucose (UA) Negative (Negative) mg/dL Urine Ketones Negative (Negative) Urine Blood Negative (Negative) Urine Nitrite Negative (Negative) Urine Bilirubin Negative (Negative) Urine Urobilinogen 0.2 (0.2) mg/dL Ur Leukocyte Esterase Negative (Negative) U Hyaline Cast (Auto) NONE SEEN (0-2) /LPF Urine Microscopic RBC 0-2 (0-5) /HPF Urine Microscopic WBC 0-2 (0-5) /HPF Ur Epithelial Cells None Seen (None Seen) /HPF Urine Bacteria None Seen (None Seen) /HPF Urine Culture Reflexed NO (NO) Monoscreen (NEGATIVE) Influenza Type A Ag (NEGATIVE) Influenza Type B Ag (NEGATIVE) RSV (PCR) (NEGATIVE) SARS-CoV-2 (PCR) (NEGATIVE) 06/21/23 06/21/23 06/21/23 Range/Units 06:40 06:40 06:36 WBC 11.6 H (4.0-10.5) x10^3/uL RBC 5.99 H (4.1-5.6) x10^6/uL Hgb 17.7 (12.5-18.0) g/dL Hct 52.1 H (42-50) % MCV 87.0 (78-100) fL MCH 29.5 (26-32) pg MCHC 34.0 (32-36) g/dL RDW 13.4 (11.5-14.0) % Plt Count 183 (150-450) x10^3/uL MPV 9.8 (7.5-11.0) fL Gran % 88.9 H (36.0-66.0) % Immature Gran % (Auto) 0.4 (0.00-0.4) % Nucleat RBC Rel Count 0.0 (0.00-0.1) % Eos # (Auto) 0.09 (0-0.5) x10^3/uL Immature Gran # (Auto) 0.05 H (0.00-0.03) x10^3u/L Absolute Lymphs (auto) 0.65 L (1.0-4.6) x10^3/uL Absolute Monos (auto) 0.47 (0.0-1.3) x10^3/uL Absolute Nucleated RBC 0.00 (0.00-0.01) x10^3u/L Lymphocytes % 5.6 L (24.0-44.0) % Monocytes % 4.1 (0.0-12.0) % Eosinophils % 0.8 (0.00-5.0) % Basophils % 0.2 (0.0-0.4) % Absolute Granulocytes 10.29 H (1.4-6.9) x10^3/uL Basophils # 0.02 (0-0.4) x10^3/uL Sodium 139 (137-145) mmol/L Potassium 4.1 (3.5-5.1) mmol/L Chloride 102 (98-107) mmol/L Carbon Dioxide 23 (22-30) mmol/L Anion Gap 17.5 H (5-15) MEQ/L BUN 18 (9-20) mg/dL Creatinine 0.93 (0.66-1.25) mg/dL Estimated GFR 100.0 ML/MIN Glucose 154 H (74-106) mg/dL Calcium 8.9 (8.4-10.2) mg/dL Total Bilirubin 1.00 (0.2-1.3) mg/dL AST 39 (17-59) U/L ALT 61 H (0-50) U/L Alkaline Phosphatase 63 (38-126) U/L Troponin I (0.000-0.034) ng/mL Serum Total Protein 8.4 H (6.3-8.2) g/dL Albumin 4.9 (3.5-5.0) g/dL Lipase (23-300) U/L Urine Color (Yellow) Urine Appearance (Clear) Urine pH (4.6-8.0) Ur Specific [place] (1.005-1.030) Urine Protein (Negative) Urine Glucose (UA) (Negative) mg/dL Urine Ketones (Negative) Urine Blood (Negative) Urine Nitrite (Negative) Urine Bilirubin (Negative) Urine Urobilinogen (0.2) mg/dL Ur Leukocyte Esterase (Negative) U Hyaline Cast (Auto) (0-2) /LPF Urine Microscopic RBC (0-5) /HPF Urine Microscopic WBC (0-5) /HPF Ur Epithelial Cells (None Seen) /HPF Urine Bacteria (None Seen) /HPF Urine Culture Reflexed (NO) Monoscreen (NEGATIVE) Influenza Type A Ag NEGATIVE (NEGATIVE) Influenza Type B Ag NEGATIVE (NEGATIVE) RSV (PCR) NEGATIVE (NEGATIVE) SARS-CoV-2 (PCR) NEGATIVE (NEGATIVE) 06/21/23 Range/Units 06:20 WBC (4.0-10.5) x10^3/uL RBC (4.1-5.6) x10^6/uL Hgb (12.5-18.0) g/dL Hct (42-50) % MCV (78-100) fL MCH (26-32) pg MCHC (32-36) g/dL RDW (11.5-14.0) % Plt Count (150-450) x10^3/uL MPV (7.5-11.0) fL Gran % (36.0-66.0) % Immature Gran % (Auto) (0.00-0.4) % Nucleat RBC Rel Count (0.00-0.1) % Eos # (Auto) (0-0.5) x10^3/uL Immature Gran # (Auto) (0.00-0.03) x10^3u/L Absolute Lymphs (auto) (1.0-4.6) x10^3/uL Absolute Monos (auto) (0.0-1.3) x10^3/uL Absolute Nucleated RBC (0.00-0.01) x10^3u/L Lymphocytes % (24.0-44.0) % Monocytes % (0.0-12.0) % Eosinophils % (0.00-5.0) % Basophils % (0.0-0.4) % Absolute Granulocytes (1.4-6.9) x10^3/uL Basophils # (0-0.4) x10^3/uL Sodium (137-145) mmol/L Potassium (3.5-5.1) mmol/L Chloride (98-107) mmol/L Carbon Dioxide (22-30) mmol/L Anion Gap (5-15) MEQ/L BUN (9-20) mg/dL Creatinine (0.66-1.25) mg/dL Estimated GFR ML/MIN Glucose (74-106) mg/dL Calcium (8.4-10.2) mg/dL Total Bilirubin (0.2-1.3) mg/dL AST (17-59) U/L ALT (0-50) U/L Alkaline Phosphatase (38-126) U/L Troponin I (0.000-0.034) ng/mL Serum Total Protein (6.3-8.2) g/dL Albumin (3.5-5.0) g/dL Lipase (23-300) U/L Urine Color (Yellow) Urine Appearance (Clear) Urine pH (4.6-8.0) Ur Specific [place] (1.005-1.030) Urine Protein (Negative) Urine Glucose (UA) (Negative) mg/dL Urine Ketones (Negative) Urine Blood (Negative) Urine Nitrite (Negative) Urine Bilirubin (Negative) Urine Urobilinogen (0.2) mg/dL Ur Leukocyte Esterase (Negative) U Hyaline Cast (Auto) (0-2) /LPF Urine Microscopic RBC (0-5) /HPF Urine Microscopic WBC (0-5) /HPF Ur Epithelial Cells (None Seen) /HPF Urine Bacteria (None Seen) /HPF Urine Culture Reflexed (NO) Monoscreen NEGATIVE (NEGATIVE) Influenza Type A Ag (NEGATIVE) Influenza Type B Ag (NEGATIVE) RSV (PCR) (NEGATIVE) SARS-CoV-2 (PCR) (NEGATIVE) - Progress Progress: improved, pain not gone completely, re-examined Progress Note: 06/21/23 07:56 This patient's medical issue is 1 of moderate complexity. The level of complexity and the workup performed is based on review of the patient's past medical history, review the patient's medication list, review of the patient's drug allergy list, history of present illness and physical findings on examination. This patient's workup includes placement of intravenous line, CT scan abdomen pelvis, twelve-lead EKG, CBC, CMP, troponin level, amylase and lipase level as well as a urinalysis. We also ordered viral swabs and monotest. 06/21/23 08:00 I interpreted the laboratory data results. Patient has mild leukocytosis. No other acute, emergent medical issues based on the laboratory data results that have returned. We are awaiting the urinalysis study. CT scan of the abdomen and pelvis was interpreted by the radiologist and I reviewed the impression. Patient's dates that the current study was compared to a study performed on 06/23/2021. There is new mild distended small bowel loops. Ileus versus enteritis. There is new mild diffuse fecal stasis. There is stable hiatal hernia with partial intrathoracic stomach. There is no mention of bowel obstruction. Counseled pt/family regarding: lab results, diagnosis, need for follow-up, rad results Medical Desision Making - Independent Historian Additional History obtained from: Spouse - Diagnostic Testing Diagnostic test were ordered, analyzed, and reviewed by me: Yes Radiological Interpretation: Reviewed by me, Teleradiologist Report - Risk of complications The pt has a mod risk of morbidity or mortality based on: Need for prescription drug management - Departure Departure Disposition: Home Clinical Impression: Enteritis Condition: Stable Critical Care Time: No Referrals: JAIME COLE MD [Primary Care Provider] - Follow up/PCP as directed Additional Instructions: Drink plenty of clear liquids. Be on a clear liquid diet for the next 12 hours before advancing your diet. Avoid fatty greasy spicy foods. Call your primary care provider today to make arrangements for follow-up appointment in the next 3 to 5 days Prescriptions: Ondansetron ODT 4 MG [Zofran Odt 4 mg] 4 mg PO Q6H PRN PRN #10 tablet PRN Reason: Vomiting Metronidazole 500 mg [Flagyl 500 MG] 500 mg PO TID #21 tablet
[2023-06-21] MEDS ORDERED: Sodium Chloride 0.9% 500 ML 500 ML IV ONE (08:26)
[2023-06-21] MEDS: Sodium Chloride 0.9% 500 ML 500 ML IV ONE (08:27)
--- NOTE | 2023-06-21 08:52 | XRAY ---
Indication: Pain. Multiple contiguous axial images obtained through the abdomen and pelvis without contrast. Comparison: June 23, 2021 Lung bases now demonstrates mild bibasilar dependent atelectasis. No infiltrate or effusion. Heart not enlarged. Stable moderate-sized hiatal hernia with partial intrathoracic stomach. Noncontrasted stomach and bowel loops nonobstructed. New mild uniformly fluid distended small bowel loops with fluid leveling, ileus versus enteritis. New mild diffuse scattered colonic fecal debris. Again 25 cm fatty hepatomegaly. Again cholecystectomy and appendectomy reported. No free fluid/air. Remaining liver, pancreas, spleen, adrenal glands, kidneys, ureters, bladder, and aorta are unremarkable for noncontrast exam. Osseous structures intact again with mild degenerative changes throughout the spine and both hips. Impression: 1. New fluid distended small bowel loops with fluid leveling, ileus versus enteritis. 2. New mild diffuse fecal stasis. 3. Again chronic findings including hiatal hernia with partial intrathoracic stomach, fatty hepatomegaly, and chronic bony findings.
[2023-06-21 09:12] LABS: Appearance Clear (Clear); Bacteria None Seen /HPF (None Seen); Bilirubin Negative (Negative); Blood Negative (Negative); Epithelial Cells None Seen /HPF (None Seen); Glucose, Urine Negative (Negative); Hyaline Casts NONE SEEN /LPF (0-2); Ketones Negative (Negative); Leukocyte Esterase Negative (Negative); Nitrite Negative (Negative); Protein,Urine Dip Negative (Negative); RBC 0-2 /HPF (0-5); Urobilinogen 0.2 mg/dL (0.2); WBC 0-2 /HPF (0-5)
[2023-06-21 09:18] LABS: ADD URINE CULTURE? NO (NO)
[2023-06-21 09:34] VITALS: BP 133/75; PULSE 96; RESP 12; O2SAT 97
== END 2023-06-21 09:48 | disposition home or self-care (01) ==
LOC: ED 05:56
DX: K52.9 Noninfective gastroenteritis and colitis, unspecified (principal); R11.2 Nausea with vomiting, unspecified; M79.10 Myalgia, unspecified site; R51.9 Headache, unspecified; R53.83 Other fatigue; R53.1 Weakness; I10 Essential (primary) hypertension; Z79.899 Other long term (current) drug therapy; Z28.310 Unvaccinated for COVID-19
CPT/HCPCS: 0241U; 36000; 36415; 74176; 80053; 81001; 83690; 84484; 85025; 86308; 93005; 96374; 99284; J2405

== ENCOUNTER 2023-11-09 15:34 | Emergency (ER) | payer OTHER ==
--- NOTE | 2023-11-09 15:36 | ERPHSYRPT ---
- History of Present Illness Time Seen by Provider: 11/09/23 15:35 Source: patient Exam Limitations: no limitations Physician History: 53 y/o white male presents with acute onset of soa at home today going up and downstairs. no cp. has h/o hiatal hernia and undergoing outpt workup in anticipation of hiatal hernia repair. pt has had a cardiac cath performed not requiring stent placement. recent echo and cardiac stress test without sig abnormalities. pt has h/o htn, gerdz and sleep apnea. no n/v/d. no flu like sx. no diaphoresis Timing/Duration: today Severity: mild Associated Symptoms: shortness of breath, heartburn (chronic), headaches, No nausea, No vomiting, No abdominal pain, No chest pain Allergies/Adverse Reactions: iv dye Allergy (Intermediate, Uncoded 11/09/23 15:47) Rash Home Medications: Aspirin 81 mg PO DAILY 01/23/13 [History] Amlodipine Besylate 1 tab PO DAILY 12/20/21 [History] Isosorbide Mononitrate [Isosorbide Mononitrate ER] 1 tab PO DAILY 12/20/21 [History] Metoprolol Succinate 1 tab PO DAILY 12/20/21 [History] [place]-3 Fatty Acids/Fish Oil [Fish Oil 1,000 mg Capsule] 2 cap PO DAILY 12/20/21 [History] Hx Tetanus, Diphtheria Vaccination/Date Given: (unknown) Hx Influenza Vaccination/Date Given: No Hx Pneumococcal Vaccination/Date Given: No Travel Risk - International Travel Have you traveled outside of the country in past 3 weeks: No - Emerging Infectious Disease Are you exhibiting symptoms associated with any current EIDs: No Symptoms: Shortness of Breath (acute onset earlier. none now) - Review of Systems Constitutional: No Symptoms Eyes: No Symptoms Ears, Nose, & Throat: No Symptoms Respiratory: Dyspnea (resolved now) Cardiac: No Symptoms Abdominal/Gastrointestinal: No Symptoms Genitourinary Symptoms: No Symptoms Musculoskeletal: No Symptoms Skin: No Symptoms Neurological: No Symptoms Psychological: No Symptoms Endocrine: No Symptoms Hematologic/Lymphatic: No Symptoms Immunological/Allergic: No Symptoms All Other Systems: Reviewed and Negative - Past Medical History Pertinent Past Medical History: Yes Neurological History: No Pertinent History ENT History: No Pertinent History Cardiac History: Coronary Artery Disease, High Cholesterol Respiratory History: Sleep Apnea Endocrine Medical History: No Pertinent History Musculoskeletal History: Arthritis GI Medical History: GERD, Gallbladder Disease, Hernia, Ulcer, Other History: No Pertinent History Psycho-Social History: No Pertinent History Male Reproductive Disorders: No Pertinent History Other Medical History: hiatal hernia - Past Surgical History Past Surgical History: Yes Neuro Surgical History: No Pertinent History Cardiac: Cardiac Catheterization Respiratory: No Pertinent History Gastrointestinal: Appendectomy, Cholecystectomy Genitourinary: No Pertinent History Musculoskeletal: Orthopedic Surgery Male Surgical History: Vasectomy Other Surgical History: tendon repair patella - Social History Smoking Status: Former smoker Exposure to second hand smoke: No Drug Use: none Patient Lives Alone: No - Nursing Vital Signs Nursing Vital Signs: Initial Vital Signs Temperature 96.8 F 11/09/23 15:38 Pulse Rate 78 11/09/23 15:38 Respiratory Rate 16 11/09/23 15:38 Blood Pressure 153/91 11/09/23 15:38 O2 Sat by Pulse Oximetry 95 11/09/23 15:38 Pain Scale Pain Intensity 0 - Physical Exam General Appearance: no apparent distress, alert, anxiety Eye Exam: PERRL/EOMI, eyes nml inspection Ears, Nose, Throat Exam: normal ENT inspection, moist mucous membranes Neck Exam: normal inspection, non-tender, supple, full range of motion Respiratory Exam: normal breath sounds, lungs clear, airway intact, No chest tenderness, No respiratory distress Cardiovascular Exam: regular rate/rhythm, normal heart sounds, normal peripheral pulses Gastrointestinal/Abdomen Exam: soft, normal bowel sounds, No tenderness Rectal Exam: not done Back Exam: normal inspection, normal range of motion, No CVA tenderness, No vertebral tenderness Extremity Exam: normal inspection, normal range of motion, pelvis stable Neurologic Exam: alert, oriented x 3, cooperative, box printer II-XII nml as tested, sensation nml Skin Exam: normal color, warm, dry Lymphatic Exam: No adenopathy SpO2 Interpretation: normal O2 Delivery: Room Air - Course Nursing assessment & vital signs reviewed: Yes EKG Interpreted by Me: RATE ([id number]), Sinus Rhythm, NORMAL AXIS, NORMAL INTERVALS, NORMAL QRS, NORMAL ST-T, Other (no acute ischemia. single pvc. qtc 427) Ordered Tests: Active Orders 24 hr Category Date Time Status Cutter In STAT Care 11/09/23 15:59 Active EKG-ER Only STAT Care 11/09/23 15:58 Active Pulse Oximetry (ED) STAT Care 11/09/23 15:58 Active CHEST 1 VIEW (PORTABLE) Stat Exams 11/09/23 17:26 Taken CBC W DIFF Stat Lab 11/09/23 16:10 Completed CMP Stat Lab 11/09/23 16:10 Completed D-DIMER QUANTITATIVE Stat Lab 11/09/23 16:10 Completed MAGNESIUM Stat Lab 11/09/23 16:10 Completed NT PRO BNPII Stat Lab 11/09/23 16:10 Completed TROPONIN Q4H Lab 11/09/23 16:10 Completed TROPONIN Q4H Lab 11/09/23 20:00 Ordered TROPONIN Q4H Lab 11/10/23 00:00 Ordered Lab/Rad Data: Laboratory Result Diagrams 11/09/23 16:10 11/09/23 16:10 Laboratory Results 11/09/23 11/09/23 11/09/23 Range/Units 16:10 16:10 16:10 WBC (4.23-9.07) x10^3/uL RBC (4.63-6.08) x10^6/uL Hgb (13.7-17.5) g/dL Hct (40.1-51.0) % MCV (79.0-92.2) fL MCH (25.7-32.2) pg MCHC (32.3-36.5) g/dL RDW (11.6-14.4) % Plt Count (163-337) x10^3/uL MPV (9.4-12.4) fL Gran % (34.0-67.9) % Immature Gran % (Auto) (0.001-0.429) % Nucleat RBC Rel Count (0.00-0.2) % Eos # (Auto) (0.04-0.54) x10^3/uL Immature Gran # (Auto) (0.001-0.031) x10^3u/L Absolute Lymphs (auto) (1.32-3.57) x10^3/uL Absolute Monos (auto) (0.30-0.82) x10^3/uL Absolute Nucleated RBC (0.00-0.012) x10^3u/L Lymphocytes % (21.8-53.1) % Monocytes % (5.3-12.2) % Eosinophils % (0.8-7.0) % Basophils % (0.2-1.2) % Absolute Granulocytes (1.78-5.38) x10^3/uL Basophils # (0.01-0.08) x10^3/uL D-Dimer < 0.19 (0.0-0.50) mg/L Sodium 137 (135-145) mmol/L Potassium 3.8 (3.5-5.1) mmol/L Chloride 103 (98-107) mmol/L Carbon Dioxide 22 (22-30) mmol/L Anion Gap 15.1 H (5-15) MEQ/L BUN 20 (9-20) mg/dL Creatinine 0.93 (0.66-1.25) mg/dL Estimated GFR 99.4 ML/MIN Glucose 111 H (74-106) mg/dL Calcium 8.9 (8.4-10.2) mg/dL Magnesium 1.9 (1.6-2.3) mg/dL Total Bilirubin 0.60 (0.2-1.3) mg/dL AST 50 (17-59) U/L ALT 92 H (0-50) U/L Alkaline Phosphatase 70 (38-126) U/L Troponin I < 0.012 (0.000-0.033) ng/mL NT-Pro-B Natriuret Pep < 20.0 (<300) pg/mL Serum Total Protein 8.0 (6.3-8.2) g/dL Albumin 4.6 (3.5-5.0) g/dL 11/09/23 Range/Units 16:10 WBC 7.6 (4.23-9.07) x10^3/uL RBC 5.86 (4.63-6.08) x10^6/uL Hgb 17.9 H (13.7-17.5) g/dL Hct 48.8 (40.1-51.0) % MCV 83.3 (79.0-92.2) fL MCH 30.5 (25.7-32.2) pg MCHC 36.7 H (32.3-36.5) g/dL RDW 13.1 (11.6-14.4) % Plt Count 189 (163-337) x10^3/uL MPV 9.7 (9.4-12.4) fL Gran % 67.5 (34.0-67.9) % Immature Gran % (Auto) 0.4 (0.001-0.429) % Nucleat RBC Rel Count 0.0 (0.00-0.2) % Eos # (Auto) 0.08 (0.04-0.54) x10^3/uL Immature Gran # (Auto) 0.03 (0.001-0.031) x10^3u/L Absolute Lymphs (auto) 1.75 (1.32-3.57) x10^3/uL Absolute Monos (auto) 0.56 (0.30-0.82) x10^3/uL Absolute Nucleated RBC 0.00 (0.00-0.012) x10^3u/L Lymphocytes % 23.1 (21.8-53.1) % Monocytes % 7.4 (5.3-12.2) % Eosinophils % 1.1 (0.8-7.0) % Basophils % 0.5 (0.2-1.2) % Absolute Granulocytes 5.12 (1.78-5.38) x10^3/uL Basophils # 0.04 (0.01-0.08) x10^3/uL D-Dimer (0.0-0.50) mg/L Sodium (135-145) mmol/L Potassium (3.5-5.1) mmol/L Chloride (98-107) mmol/L Carbon Dioxide (22-30) mmol/L Anion Gap (5-15) MEQ/L BUN (9-20) mg/dL Creatinine (0.66-1.25) mg/dL Estimated GFR ML/MIN Glucose (74-106) mg/dL Calcium (8.4-10.2) mg/dL Magnesium (1.6-2.3) mg/dL Total Bilirubin (0.2-1.3) mg/dL AST (17-59) U/L ALT (0-50) U/L Alkaline Phosphatase (38-126) U/L Troponin I (0.000-0.033) ng/mL NT-Pro-B Natriuret Pep (<300) pg/mL Serum Total Protein (6.3-8.2) g/dL Albumin (3.5-5.0) g/dL - Progress Progress: improved, re-examined Progress Note: 11/09/23 17:34 my medical issue and the assignment of mod complexity of this pts medical issue today is based on review of pmh, review of med list, review of drug allergy list, hpi and physical findings on exam. w/u includes 12 lead ekg, troponin, bnp, ddimer, cbc, cmp, mag level, cxr diff dx includes but not limited to chf, mi, pulm embolus, pneumonia, electrolyte abnormalities, arrhythmias 11/09/23 18:13 i interpreted the patients lab results. based on the lab results, there is no acute, emergent medical issue the preliminary report for this pts cxr was interpreted by me. no acute c ardiopulmonary process Discussed with Dr.: Israel Counseled pt/family regarding: lab results, diagnosis, need for follow-up, rad results Medical Desision Making - Independent Historian Additional History obtained from: Spouse - Diagnostic Testing Diagnostic test were ordered, analyzed, and reviewed by me: Yes Radiological Interpretation: Interpreted by me - Risk of complications Low Risk: Low risk of morbidity from additional dx testing or treatment - Departure Departure Disposition: Home Clinical Impression: Shortness of breath Condition: Stable Critical Care Time: No Referrals: JAIME COLE MD [Primary Care Provider] - Follow up/PCP as directed Additional Instructions: take all your usual medications as prescribed. return to emergency room if symptoms recur, worsen. call your swager operator, miller helper and primary provder on sunday11/12/23, to arrange follow up appointments and to advise them of todays new symptom
[2023-11-09 15:45] VITALS: PULSE 78; RESP 16; TEMP 96.8
[2023-11-09 16:15] LABS: Absolute Neutrophil Ct (ANC) 5.12 x10^3/uL (1.78-5.38); BASOPHIL % 0.5 % (0.2-1.2); Basophil (Absolute #) 0.04 x10^3/uL (0.01-0.08); Eosinophil % 1.1 % (0.8-7.0); Eosinophil (Absolute #) 0.08 x10^3/uL (0.04-0.54); Hematocrit 48.8 % (40.1-51.0); Hemoglobin 17.9 g/dL (13.7-17.5); IMMATURE GRAN # 0.03 x10^3u/L (0.001-0.031); IMMATURE GRAN % 0.4 % (0.001-0.429); Lymphocyte (Absolute #) 1.75 x10^3/uL (1.32-3.57); Lymphocytes % 23.1 % (21.8-53.1); Mean Cell Volume 83.3 fL (79.0-92.2); Mean Corpuscular Hemoglobin 30.5 pg (25.7-32.2); Mean Corpuscular Hgb Concent. 36.7 g/dL (32.3-36.5); Mean Platelet Volume 9.7 fL (9.4-12.4); Monocyte (Absolute #) 0.56 x10^3/uL (0.30-0.82); Monocytes % 7.4 % (5.3-12.2); Neutrophil % 67.5 % (34.0-67.9); Platelet Count 189 x10^3/uL (163-337); Red Blood Count 5.86 x10^6/uL (4.63-6.08); Red Cell Distribution Width 13.1 % (11.6-14.4); White Blood Count 7.6 x10^3/uL (4.23-9.07)
[2023-11-09 16:17] VITALS: O2SAT 94
[2023-11-09 16:39] LABS: ALBUMIN 4.6 g/dL (3.5-5.0); ALKALINE PHOSPHATASE 70 U/L (38-126); ANION GAP 15.1 MEQ/L (5-15); BLOOD UREA NITROGEN 20 mg/dL (9-20); CHLORIDE 103 mmol/L (98-107); Calcium 8.9 mg/dL (8.4-10.2); Carbon Dioxide 22 mmol/L (22-30); Creatinine 1 0.93 mg/dL (0.66-1.25); EST GLOMERULAR FILTRATION RATE 99.4 ML/MIN; Glucose 111 mg/dL (74-106); MAGNESIUM 1.9 mg/dL (1.6-2.3); NT PRO BNPII < 20.0 pg/mL (<300); Potassium 3.8 mmol/L (3.5-5.1); SGOT/AST 50 U/L (17-59); SGPT/ALT 92 U/L (0-50); SODIUM 137 mmol/L (135-145)
[2023-11-09 18:15] VITALS: BP 136/81
--- NOTE | 2023-11-09 21:30 | XRAY ---
Indication: Short of breath. Comparison: December 20, 2021 Portable chest remains inflated and clear. Heart not enlarged again with small hiatal hernia. Bony thorax intact again with mild degenerative changes. No new/acute findings.
== END 2023-11-09 18:29 | disposition home or self-care (01) ==
LOC: ED 15:34
DX: R06.02 Shortness of breath (principal); I10 Essential (primary) hypertension; E78.5 Hyperlipidemia, unspecified; Z79.899 Other long term (current) drug therapy
CPT/HCPCS: 36415; 71045; 80053; 83735; 83880; 84484; 85025; 85379; 93005; 93041; 94760; 99284

== ENCOUNTER 2024-01-26 17:10 | Emergency (ER) | payer OTHER ==
[2024-01-26 17:21] VITALS: TEMP 98.1
--- NOTE | 2024-01-26 17:33 | ERPHSYRPT ---
- History of Present Illness Time Seen by Provider: 01/26/24 17:30 Historian: patient Exam Limitations: no limitations Patient Subjective Stated Complaint: PT states "I have not been feeling well for a couple of days but about 30 minutes ago I started to have chest pain and a little short of breath, dizzy and pain in my back. I am not in pain now I just do not feel right." Triage Nursing Assessment: Pt presented alert and oriented X 3, skin wpd. Pt ambulates with an upright steady gait, able to speak in clear full sentenecs. PT in no apparent respiratory distress. Pt resting comfortably on the bed. pt ssis etl developer Dr. freeman Physician History: The patient, with a known history of hiatal hernia and heart blockages, presents with a week-long history of feeling unwell, characterized by persistent dizziness and an unusual sensation of the heart rhythm. He reports a recent episode of back pain, which was different from the usual chest pain experienced due to the hiatal hernia. He used a personal EKG device, which indicated possible AFib, a new finding for him. He also reports feeling more winded than usual, which started while en route to the hospital. The patient's ongoing medications include metoprolol, amlodipine, isosorbide, and aspirin. He denies being diabetic. The patient also reports chronic abdo bianca pain, attributed to the hiatal hernia, and a slight feeling of nausea without any vomiting. He has not had any stents placed despite known heart blockages. Timing/Duration: today Activities at Onset: rest Quality: pressure, sharpness Location: substernal Chest Pain Radiation: back Severity of Pain-Max: severe Severity of Pain-Current: moderate Modifying Factors: Improves With: nothing. Worsens With: movement, palpation Associated Symptoms: nausea, palpitations, heartburn, abdominal pain, shortness of breath, dizziness, No vomiting, No cough, No hurts to breathe, No fever, No edema Prior Chest Pain/Cardiac Workup: cardiac cath Nitro Today/Relief: no nitro taken today Aspirin Treatment Today: 81 mg x 2, provided by ED Allergies/Adverse Reactions: iv dye Allergy (Intermediate, Uncoded 11/09/23 15:47) Rash Home Medications: Aspirin 81 mg PO DAILY 01/23/13 [History] Amlodipine Besylate 1 tab PO DAILY 12/20/21 [History] Isosorbide Mononitrate [Isosorbide Mononitrate ER] 1 tab PO DAILY 12/20/21 [History] Metoprolol Succinate 1 tab PO DAILY 12/20/21 [History] [place]-3 Fatty Acids/Fish Oil [Fish Oil 1,000 mg Capsule] 2 cap PO DAILY 12/20/21 [History] Hx Tetanus, Diphtheria Vaccination/Date Given: (unknown) Hx Influenza Vaccination/Date Given: No Hx Pneumococcal Vaccination/Date Given: No Immunizations Up to Date: No Travel Risk - International Travel Have you traveled outside of the country in past 3 weeks: No - Emerging Infectious Disease Are you exhibiting symptoms associated with any current EIDs: No Symptoms: Shortness of Breath (acute onset earlier. none now) - Review of Systems All Other Systems: Reviewed and Negative - Past Medical History Pertinent Past Medical History: Yes Neurological History: No Pertinent History ENT History: No Pertinent History Cardiac History: Coronary Artery Disease, High Cholesterol Respiratory History: Sleep Apnea Endocrine Medical History: No Pertinent History Musculoskeletal History: Arthritis GI Medical History: GERD, Gallbladder Disease, Hernia, Ulcer, Other History: No Pertinent History Psycho-Social History: No Pertinent History Male Reproductive Disorders: No Pertinent History Other Medical History: hiatal hernia - Past Surgical History Past Surgical History: Yes Neuro Surgical History: No Pertinent History Cardiac: Cardiac Catheterization Respiratory: No Pertinent History Gastrointestinal: Appendectomy, Cholecystectomy Genitourinary: No Pertinent History Musculoskeletal: Orthopedic Surgery Male Surgical History: Vasectomy Other Surgical History: tendon repair patella - Social History Smoking Status: Former smoker Exposure to second hand smoke: No Drug Use: none Patient Lives Alone: No - Social Determinants of Health Will the patient participate in the screening: Yes Do you worry about a steady place to live?: No Do you have any problems with any of the following?: No known problems In the past 12 months,have you had to go without utilities?: No Transportation Issues: No Has anyone in your support network made you feel unsafe?: No Have you or anyone in your house had to go without enough: No - Nursing Vital Signs Nursing Vital Signs: Initial Vital Signs Temperature 98.1 F 01/26/24 17:11 Pulse Rate 71 01/26/24 17:11 Respiratory Rate 20 01/26/24 17:11 Blood Pressure 184/98 01/26/24 17:11 O2 Sat by Pulse Oximetry 97 01/26/24 17:11 Pain Scale Pain Intensity 0 - Physical Exam General Appearance: no apparent distress, anxiety Eye Exam: PERRL/EOMI, eyes nml inspection Ears, Nose, Throat Exam: normal ENT inspection Neck Exam: normal inspection, non-tender, supple, full range of motion Respiratory Exam: normal breath sounds, lungs clear, airway intact, No chest tenderness, No respiratory distress Cardiovascular Exam: regular rate/rhythm, normal heart sounds, capillary refill <2 sec, No murmur, No edema Gastrointestinal/Abdomen Exam: soft, No tenderness, No distention, No mass, No guarding, No rebound Extremity Exam: No swelling, No tenderness Neurologic Exam: alert, oriented x 3, cooperative, delivery and installation subcontractor II-XII nml as tested Skin Exam: normal color, warm, dry, No rash SpO2 Interpretation: normal SpO2: 97 O2 Delivery: Room Air - Course Nursing assessment & vital signs reviewed: Yes EKG Interpreted by Me: RATE (63), Sinus Rhythm, NORMAL AXIS, NORMAL INTERVALS, NORMAL QRS, NORMAL ST-T Ordered Tests: Active Orders 24 hr Category Date Time Status Signal Tower Operator STAT Care 01/26/24 17:36 Active EKG-ER Only STAT Care 01/26/24 17:34 Active IV Insertion STAT Care 01/26/24 17:34 Active CHEST 1 VIEW (PORTABLE) Stat Exams 01/26/24 17:35 Completed CBC W DIFF Stat Lab 01/26/24 17:22 Completed CMP Stat Lab 01/26/24 17:22 Completed D-DIMER QUANTITATIVE Stat Lab 01/26/24 17:22 Completed NT PRO BNPII Stat Lab 01/26/24 17:22 Completed TROPONIN Q4H Lab 01/26/24 17:22 Completed TROPONIN Q4H Lab 01/26/24 19:28 Completed TROPONIN Q4H Lab 01/27/24 01:45 Ordered Urine Triage Profile Stat Lab 01/26/24 17:43 Completed [place] 3-7 Day Holter ONCE RT 01/26/24 19:28 Completed Medication Summary Discontinued Medications Generic Name Dose Route Start Last Admin Trade Name Freq PRN Reason Stop Dose Admin Aspirin 162 mg 01/26/24 17:34 01/26/24 17:45 Aspirin 81 Mg Tab.Chew PO 01/26/24 17:35 162 mg STAT ONE Administration Aspirin Confirm 01/26/24 17:44 Aspirin 81 Mg Tab.Chew Administered 01/26/24 17:45 Dose 324 mg .ROUTE .STK-MED ONE Sodium Chloride 1,000 mls @ 999 mls/hr 01/26/24 17:34 01/26/24 18:48 Sodium Chloride 0.9% 1000 Ml IV 01/26/24 18:34 Infused .Q1H1M STA Infusion Sodium Chloride Confirm 01/26/24 17:44 Sodium Chloride 0.9% 1000 Ml Administered 01/26/24 17:45 Dose 1,000 mls @ ud .ROUTE .STK-MED ONE Lab/Rad Data: Laboratory Result Diagrams 01/26/24 17:22 01/26/24 17:22 Laboratory Results 01/26/24 01/26/24 01/26/24 Range/Units 19:28 17:43 17:22 WBC (4.23-9.07) x10^3/uL RBC (4.63-6.08) x10^6/uL Hgb (13.7-17.5) g/dL Hct (40.1-51.0) % MCV (79.0-92.2) fL MCH (25.7-32.2) pg MCHC (32.3-36.5) g/dL RDW (11.6-14.4) % Plt Count (163-337) x10^3/uL MPV (9.4-12.4) fL Gran % (34.0-67.9) % Immature Gran % (Auto) (0.001-0.429) % Nucleat RBC Rel Count (0.00-0.2) % Eos # (Auto) (0.04-0.54) x10^3/uL Immature Gran # (Auto) (0.001-0.031) x10^3u/L Absolute Lymphs (auto) (1.32-3.57) x10^3/uL Absolute Monos (auto) (0.30-0.82) x10^3/uL Absolute Nucleated RBC (0.00-0.012) x10^3u/L Lymphocytes % (21.8-53.1) % Monocytes % (5.3-12.2) % Eosinophils % (0.8-7.0) % Basophils % (0.2-1.2) % Absolute Granulocytes (1.78-5.38) x10^3/uL Basophils # (0.01-0.08) x10^3/uL D-Dimer (0.0-0.50) mg/L Sodium (135-145) mmol/L Potassium (3.5-5.1) mmol/L Chloride (98-107) mmol/L Carbon Dioxide (22-30) mmol/L Anion Gap (5-15) MEQ/L BUN (9-20) mg/dL Creatinine (0.66-1.25) mg/dL Estimated GFR ML/MIN Glucose (74-106) mg/dL Calcium (8.4-10.2) mg/dL Total Bilirubin (0.2-1.3) mg/dL AST (17-59) U/L ALT (0-50) U/L Alkaline Phosphatase (38-126) U/L Troponin I < 0.012 < 0.012 (0.000-0.033) ng/mL NT-Pro-B Natriuret Pep (<300) pg/mL Serum Total Protein (6.3-8.2) g/dL Albumin (3.5-5.0) g/dL Urine Opiates Level NEGATIVE (NEGATIVE) Ur Methadone NEGATIVE (NEGATIVE) Urine Barbiturates NEGATIVE (NEGATIVE) Ur Phencyclidine (PCP) NEGATIVE (NEGATIVE) Urine Amphetamine NEGATIVE (NEGATIVE) U Benzodiazepine Level NEGATIVE (NEGATIVE) Urine Cocaine NEGATIVE (NEGATIVE) Urine Marijuana (THC) NEGATIVE (NEGATIVE) 01/26/24 01/26/24 01/26/24 Range/Units 17:22 17:22 17:22 WBC 7.3 (4.23-9.07) x10^3/uL RBC 5.86 (4.63-6.08) x10^6/uL Hgb 17.1 (13.7-17.5) g/dL Hct 49.2 (40.1-51.0) % MCV 84.0 (79.0-92.2) fL MCH 29.2 (25.7-32.2) pg MCHC 34.8 (32.3-36.5) g/dL RDW 12.6 (11.6-14.4) % Plt Count 181 (163-337) x10^3/uL MPV 10.4 (9.4-12.4) fL Gran % 60.9 (34.0-67.9) % Immature Gran % (Auto) 0.3 (0.001-0.429) % Nucleat RBC Rel Count 0.0 (0.00-0.2) % Eos # (Auto) 0.10 (0.04-0.54) x10^3/uL Immature Gran # (Auto) 0.02 (0.001-0.031) x10^3u/L Absolute Lymphs (auto) 2.17 (1.32-3.57) x10^3/uL Absolute Monos (auto) 0.52 (0.30-0.82) x10^3/uL Absolute Nucleated RBC 0.00 (0.00-0.012) x10^3u/L Lymphocytes % 29.8 (21.8-53.1) % Monocytes % 7.1 (5.3-12.2) % Eosinophils % 1.4 (0.8-7.0) % Basophils % 0.5 (0.2-1.2) % Absolute Granulocytes 4.43 (1.78-5.38) x10^3/uL Basophils # 0.04 (0.01-0.08) x10^3/uL D-Dimer < 0.19 (0.0-0.50) mg/L Sodium 139 (135-145) mmol/L Potassium 3.9 (3.5-5.1) mmol/L Chloride 100 (98-107) mmol/L Carbon Dioxide 26 (22-30) mmol/L Anion Gap 16.9 H (5-15) MEQ/L BUN 18 (9-20) mg/dL Creatinine 1.08 (0.66-1.25) mg/dL Estimated GFR 83.1 ML/MIN Glucose 124 H (74-106) mg/dL Calcium 9.5 (8.4-10.2) mg/dL Total Bilirubin 0.60 (0.2-1.3) mg/dL AST 44 (17-59) U/L ALT 66 H (0-50) U/L Alkaline Phosphatase 76 (38-126) U/L Troponin I (0.000-0.033) ng/mL NT-Pro-B Natriuret Pep 20.5 (<300) pg/mL Serum Total Protein 7.9 (6.3-8.2) g/dL Albumin 4.6 (3.5-5.0) g/dL Urine Opiates Level (NEGATIVE) Ur Methadone (NEGATIVE) Urine Barbiturates (NEGATIVE) Ur Phencyclidine (PCP) (NEGATIVE) Urine Amphetamine (NEGATIVE) U Benzodiazepine Level (NEGATIVE) Urine Cocaine (NEGATIVE) Urine Marijuana (THC) (NEGATIVE) - Progress Progress: improved Air Movement: good Progress Note: 1L NS bolus. Lab evaluation unremarkable, initial troponin neg. EKG NSR. Patient's sxs improved. Will repeat 2nd Troponin and DC home with holter monitor. Patient has appointment with his ssis etl developer on Sunday. 01/26/24 20:42 2nd trop neg, will dc home. Blood Culture(s) Obtained: No Antibiotics given: No Counseled pt/family regarding: lab results, diagnosis, need for follow-up, rad results - Departure Departure Disposition: Home Clinical Impression: Palpitations, Chest pain Condition: Good Critical Care Time: No Referrals: JAIME COLE MD [Primary Care Provider] - Follow up/PCP as directed Instructions: Palpitations ED
[2024-01-26] MEDS ORDERED: Sodium Chloride 0.9% 1000 ML 1,000 ML ONE (17:44)
[2024-01-26] MEDS ORDERED: BABY ASPIRIN 81 MG CHEW ONE (17:44)
[2024-01-26] MEDS: BABY ASPIRIN 81 MG CHEW PO ONE (17:45)
[2024-01-26] MEDS: Sodium Chloride 0.9% 1000 ML 1,000 ML IV STA (17:45)
[2024-01-26 17:51] LABS: Absolute Neutrophil Ct (ANC) 4.43 x10^3/uL (1.78-5.38); BASOPHIL % 0.5 % (0.2-1.2); Basophil (Absolute #) 0.04 x10^3/uL (0.01-0.08); Eosinophil % 1.4 % (0.8-7.0); Hematocrit 49.2 % (40.1-51.0); Hemoglobin 17.1 g/dL (13.7-17.5); IMMATURE GRAN # 0.02 x10^3u/L (0.001-0.031); IMMATURE GRAN % 0.3 % (0.001-0.429); Lymphocyte (Absolute #) 2.17 x10^3/uL (1.32-3.57); Lymphocytes % 29.8 % (21.8-53.1); Mean Corpuscular Hemoglobin 29.2 pg (25.7-32.2); Mean Corpuscular Hgb Concent. 34.8 g/dL (32.3-36.5); Mean Platelet Volume 10.4 fL (9.4-12.4); Monocyte (Absolute #) 0.52 x10^3/uL (0.30-0.82); Monocytes % 7.1 % (5.3-12.2); Neutrophil % 60.9 % (34.0-67.9); Platelet Count 181 x10^3/uL (163-337); Red Blood Count 5.86 x10^6/uL (4.63-6.08); Red Cell Distribution Width 12.6 % (11.6-14.4); White Blood Count 7.3 x10^3/uL (4.23-9.07)
[2024-01-26 18:08] LABS: Amphetamine,Urine NEGATIVE (NEGATIVE); Barbiturate,Urine NEGATIVE (NEGATIVE); Benzodiazepine,Urine NEGATIVE (NEGATIVE); Cocaine,Urine NEGATIVE (NEGATIVE); Methadone,Urine NEGATIVE (NEGATIVE); Opiate,Urine NEGATIVE (NEGATIVE); PCP,Urine NEGATIVE (NEGATIVE)
[2024-01-26 18:13] LABS: ALBUMIN 4.6 g/dL (3.5-5.0); ANION GAP 16.9 MEQ/L (5-15); BILIRUBIN,TOTAL 0.6 mg/dL (0.2-1.3); Calcium 9.5 mg/dL (8.4-10.2); Creatinine 1 1.08 mg/dL (0.66-1.25); EST GLOMERULAR FILTRATION RATE 83.1 ML/MIN; NT PRO BNPII 20.5 pg/mL (<300); Potassium 3.9 mmol/L (3.5-5.1); Total Protein 7.9 g/dL (6.3-8.2)
[2024-01-26 18:17] LABS: THC,Urine NEGATIVE (NEGATIVE)
--- NOTE | 2024-01-26 19:31 | XRAY ---
Indication: Chest pain. Comparison: November 09, 2023 Portable chest again demonstrates minimal right midlung subsegmental atelectasis/scarring. No focal infiltrate, consolidation, or large effusion. Heart not enlarged. Bony thorax intact again with mild degenerative changes. Impression: Continued nonacute chest with chronic features.
[2024-01-26 20:21] VITALS: BP 126/68; PULSE 65; RESP 19
[2024-01-26 20:42] VITALS: O2SAT 97
== END 2024-01-26 20:50 | disposition home or self-care (01) ==
LOC: ED 17:10
DX: R00.2 Palpitations (principal); R07.9 Chest pain, unspecified; R42 Dizziness and giddiness; E78.5 Hyperlipidemia, unspecified; Z79.899 Other long term (current) drug therapy
CPT/HCPCS: 36000; 36415; 71045; 80053; 80307; 83880; 84484; 85025; 85379; 93005; 93041; 93225; 96360; 99284; A9270-GY

== ENCOUNTER 2024-02-16 06:48 | Emergency (ER) | payer OTHER ==
[2024-02-16 06:52] VITALS: TEMP 97.6
--- NOTE | 2024-02-16 07:08 | ERPHSYRPT ---
- History of Present Illness Time Seen by Provider: 02/16/24 06:52 Historian: patient, industrial automation engineer Patient Subjective Stated Complaint: chest pain Triage Nursing Assessment: Pt ambulated into ER without diff, pt alert and oriented x4. Pt c/o chest pressure this morning upon waking up. Pt showered and the chest pain continued and got worse. Pt has never felt this type of pain before. Lungs clear, heart tones reg. Pt denies any vomiting or diarrhea. Pt denies any sob but had a slight bit with the inital chest pain. No edema noted. Physician History: About 1 hour ago pt started with anterior chest pressure(gone now) and shortness of air(gone now); denies nausea, vomiting, diarrhea. Pt states he has a hiatal hernia and has chronic daily chest pain and abdominal pain for years. Pt states he has a heart cath scheduled for 02/19/24 and security systems specialist is Dr. Yang. Aspirin Treatment Today: 81 mg x 3, provided by ED (81 mg taken at home) Allergies/Adverse Reactions: iv dye Allergy (Intermediate, Uncoded 02/16/24 07:01) Rash Home Medications: Aspirin 81 mg PO DAILY 01/23/13 [History] Amlodipine Besylate 1 tab PO BID 12/20/21 [History] Isosorbide Mononitrate [Isosorbide Mononitrate ER] 1 tab PO DAILY 12/20/21 [History] Metoprolol Succinate 1 tab PO DAILY 12/20/21 [History] ALPRAZolam 0.25 MG [xanAX 0.25 MG] 1 tab PO HS PRN PRN 02/16/24 [History] Hx Tetanus, Diphtheria Vaccination/Date Given: No Hx Influenza Vaccination/Date Given: No Hx Pneumococcal Vaccination/Date Given: No Travel Risk - International Travel Have you traveled outside of the country in past 3 weeks: No - Emerging Infectious Disease Are you exhibiting symptoms associated with any current EIDs: No Symptoms: Shortness of Breath (acute onset earlier. none now) - Review of Systems Constitutional: No Fever Ears, Nose, & Throat: No Ear Pain, No Throat Pain Respiratory: Dyspnea Cardiac: Chest Pain (chronic), Other (chest pressure) Abdominal/Gastrointestinal: Abdominal Pain (chronic) Skin: No Rash Neurological: No Headache - Past Medical History Pertinent Past Medical History: Yes Neurological History: No Pertinent History ENT History: No Pertinent History Cardiac History: Coronary Artery Disease, High Cholesterol, Hypertension Respiratory History: Sleep Apnea Endocrine Medical History: No Pertinent History Musculoskeletal History: Arthritis GI Medical History: GERD, Gallbladder Disease, Hernia, Ulcer, Other History: No Pertinent History Psycho-Social History: No Pertinent History Male Reproductive Disorders: No Pertinent History Other Medical History: hiatal hernia - Past Surgical History Past Surgical History: Yes Neuro Surgical History: No Pertinent History Cardiac: Cardiac Catheterization Respiratory: No Pertinent History Gastrointestinal: Appendectomy, Cholecystectomy Genitourinary: No Pertinent History Musculoskeletal: Orthopedic Surgery Male Surgical History: Vasectomy Other Surgical History: tendon repair patella - Social History Smoking Status: Former smoker Exposure to second hand smoke: No Drug Use: none Patient Lives Alone: No - Social Determinants of Health Will the patient participate in the screening: Yes Do you worry about a steady place to live?: No Do you have any problems with any of the following?: No known problems In the past 12 months,have you had to go without utilities?: No Transportation Issues: No Has anyone in your support network made you feel unsafe?: No Have you or anyone in your house had to go without enough: No - Nursing Vital Signs Nursing Vital Signs: Initial Vital Signs Temperature 97.6 F 02/16/24 06:49 Pulse Rate 60 02/16/24 06:49 Respiratory Rate 16 02/16/24 06:49 Blood Pressure 150/94 02/16/24 06:49 O2 Sat by Pulse Oximetry 96 02/16/24 06:49 Pain Scale Pain Intensity 3 - Physical Exam General Appearance: alert Eye Exam: eyes nml inspection Ears, Nose, Throat Exam: TMs normal, pharynx normal Neck Exam: normal inspection Respiratory Exam: lungs clear Cardiovascular Exam: normal heart sounds Gastrointestinal/Abdomen Exam: normal bowel sounds Extremity Exam: No pedal edema Neurologic Exam: alert, cooperative Skin Exam: warm, dry SpO2 Interpretation: normal SpO2: 96 O2 Delivery: Room Air - Course Nursing assessment & vital signs reviewed: Yes EKG Interpreted by Me: RATE (60), Sinus Rhythm, NORMAL AXIS, Other (QTc = 418) - Radiology Exams Chest X-ray Interpretation: Discussed w/ radiologist (Minimal right middle lobe subsegmental atelectasis/scarring. Remaining heart and lungs normal. No new/acute findings.) - CT Exams Abdomen/Pelvis CT Interpretation: Discussed w/radiologist (No time interval changes. Comparison prior CT dated 06/21/2023 See rest of report.) Ordered Tests: Active Orders 24 hr Category Date Time Status EKG-ER Only STAT Care 02/16/24 07:02 Active EKG-ER Only STAT Care 02/16/24 11:12 Active IV Insertion STAT Care 02/16/24 07:01 Active ABDOMEN AND PELVIS W/0 CONTRAS [CT] Stat Exams 02/16/24 07:58 Completed CHEST 2 VIEWS (PA AND LAT) Stat Exams 02/16/24 07:03 Completed AMYLASE Stat Lab 02/16/24 07:17 Completed CBC W DIFF Stat Lab 02/16/24 07:17 Completed CMP Stat Lab 02/16/24 07:17 Completed D-DIMER QUANTITATIVE Stat Lab 02/16/24 07:17 Completed LIPASE Stat Lab 02/16/24 07:17 Completed MAGNESIUM Stat Lab 02/16/24 07:17 Completed TROPONIN Q4H Lab 02/16/24 07:17 Completed TROPONIN Q4H Lab 02/16/24 11:00 Completed TROPONIN Q4H Lab 02/16/24 15:15 Ordered UA W/RFX UR CULTURE Stat Lab 02/16/24 08:14 Completed Medication Summary Discontinued Medications Generic Name Dose Route Start Last Admin Trade Name Freq PRN Reason Stop Dose Admin Aspirin 324 mg 02/16/24 07:03 02/16/24 07:12 Aspirin 81 Mg Tab.Chew PO 02/16/24 07:04 243 mg STAT ONE Administration Aspirin Confirm 02/16/24 07:11 Aspirin 81 Mg Tab.Chew Administered 02/16/24 07:12 Dose 243 mg .ROUTE .STK-MED ONE Nitroglycerin 0.4 mg 02/16/24 07:10 02/16/24 07:12 Nitroglycerin 0.4 Mg (Ed) 0.4 Mg Tab.Subl SL 02/16/24 07:11 0.4 mg STAT ONE Administration Nitroglycerin Confirm 02/16/24 07:11 Nitroglycerin 0.4 Mg (Ed) 0.4 Mg Tab.Subl Administered 02/16/24 07:12 Dose 0.4 mg SL .STK-MED ONE Lab/Rad Data: Laboratory Result Diagrams 02/16/24 07:17 02/16/24 07:17 Laboratory Results 02/16/24 02/16/24 02/16/24 Range/Units 11:00 08:14 07:17 WBC (4.23-9.07) x10^3/uL RBC (4.63-6.08) x10^6/uL Hgb (13.7-17.5) g/dL Hct (40.1-51.0) % MCV (79.0-92.2) fL MCH (25.7-32.2) pg MCHC (32.3-36.5) g/dL RDW (11.6-14.4) % Plt Count (163-337) x10^3/uL MPV (9.4-12.4) fL Gran % (34.0-67.9) % Immature Gran % (Auto) (0.001-0.429) % Nucleat RBC Rel Count (0.00-0.2) % Eos # (Auto) (0.04-0.54) x10^3/uL Immature Gran # (Auto) (0.001-0.031) x10^3u/L Absolute Lymphs (auto) (1.32-3.57) x10^3/uL Absolute Monos (auto) (0.30-0.82) x10^3/uL Absolute Nucleated RBC (0.00-0.012) x10^3u/L Lymphocytes % (21.8-53.1) % Monocytes % (5.3-12.2) % Eosinophils % (0.8-7.0) % Basophils % (0.2-1.2) % Absolute Granulocytes (1.78-5.38) x10^3/uL Basophils # (0.01-0.08) x10^3/uL D-Dimer (0.0-0.50) mg/L Sodium (135-145) mmol/L Potassium (3.5-5.1) mmol/L Chloride (98-107) mmol/L Carbon Dioxide (22-30) mmol/L Anion Gap (5-15) MEQ/L BUN (9-20) mg/dL Creatinine (0.66-1.25) mg/dL Estimated GFR ML/MIN Glucose (74-106) mg/dL Calcium (8.4-10.2) mg/dL Magnesium (1.6-2.3) mg/dL Total Bilirubin (0.2-1.3) mg/dL AST (17-59) U/L ALT (0-50) U/L Alkaline Phosphatase (38-126) U/L Troponin I < 0.012 < 0.012 (0.000-0.033) ng/mL Serum Total Protein (6.3-8.2) g/dL Albumin (3.5-5.0) g/dL Amylase (30-110) U/L Lipase (23-300) U/L Urine Color Yellow (Yellow) Urine Appearance Clear (Clear) Urine pH 5.0 (4.6-8.0) Ur Specific [place] 1.010 (1.005-1.030) Urine Protein Negative (Negative) Urine Glucose (UA) Negative (Negative) mg/dL Urine Ketones Negative (Negative) Urine Blood Negative (Negative) Urine Nitrite Negative (Negative) Urine Bilirubin Negative (Negative) Urine Urobilinogen 0.2 (0.2) mg/dL Ur Leukocyte Esterase Negative (Negative) U Hyaline Cast (Auto) NONE SEEN (0-2) /LPF Urine Microscopic RBC 0-2 (0-5) /HPF Urine Microscopic WBC 0-2 (0-5) /HPF Ur Epithelial Cells None Seen (None Seen) /HPF Urine Bacteria None Seen (None Seen) /HPF Urine Culture Reflexed NO (NO) 02/16/24 02/16/24 02/16/24 Range/Units 07:17 07:17 07:17 WBC 6.7 (4.23-9.07) x10^3/uL RBC 5.95 (4.63-6.08) x10^6/uL Hgb 16.9 (13.7-17.5) g/dL Hct 49.6 (40.1-51.0) % MCV 83.4 (79.0-92.2) fL MCH 28.4 (25.7-32.2) pg MCHC 34.1 (32.3-36.5) g/dL RDW 12.5 (11.6-14.4) % Plt Count 183 (163-337) x10^3/uL MPV 10.4 (9.4-12.4) fL Gran % 56.8 (34.0-67.9) % Immature Gran % (Auto) 0.3 (0.001-0.429) % Nucleat RBC Rel Count 0.0 (0.00-0.2) % Eos # (Auto) 0.12 (0.04-0.54) x10^3/uL Immature Gran # (Auto) 0.02 (0.001-0.031) x10^3u/L Absolute Lymphs (auto) 2.20 (1.32-3.57) x10^3/uL Absolute Monos (auto) 0.51 (0.30-0.82) x10^3/uL Absolute Nucleated RBC 0.00 (0.00-0.012) x10^3u/L Lymphocytes % 32.8 (21.8-53.1) % Monocytes % 7.6 (5.3-12.2) % Eosinophils % 1.8 (0.8-7.0) % Basophils % 0.7 (0.2-1.2) % Absolute Granulocytes 3.80 (1.78-5.38) x10^3/uL Basophils # 0.05 (0.01-0.08) x10^3/uL D-Dimer 0.22 (0.0-0.50) mg/L Sodium 139 (135-145) mmol/L Potassium 4.0 (3.5-5.1) mmol/L Chloride 105 (98-107) mmol/L Carbon Dioxide 18 L (22-30) mmol/L Anion Gap 19.5 H (5-15) MEQ/L BUN 22 H (9-20) mg/dL Creatinine 1.18 (0.66-1.25) mg/dL Estimated GFR 74.7 ML/MIN Glucose 101 (74-106) mg/dL Calcium 10.1 (8.4-10.2) mg/dL Magnesium 2.1 (1.6-2.3) mg/dL Total Bilirubin 0.80 (0.2-1.3) mg/dL AST 46 (17-59) U/L ALT 54 H (0-50) U/L Alkaline Phosphatase 59 (38-126) U/L Troponin I (0.000-0.033) ng/mL Serum Total Protein 8.2 (6.3-8.2) g/dL Albumin 4.7 (3.5-5.0) g/dL Amylase 153 H (30-110) U/L Lipase 161 (23-300) U/L Urine Color (Yellow) Urine Appearance (Clear) Urine pH (4.6-8.0) Ur Specific [place] (1.005-1.030) Urine Protein (Negative) Urine Glucose (UA) (Negative) mg/dL Urine Ketones (Negative) Urine Blood (Negative) Urine Nitrite (Negative) Urine Bilirubin (Negative) Urine Urobilinogen (0.2) mg/dL Ur Leukocyte Esterase (Negative) U Hyaline Cast (Auto) (0-2) /LPF Urine Microscopic RBC (0-5) /HPF Urine Microscopic WBC (0-5) /HPF Ur Epithelial Cells (None Seen) /HPF Urine Bacteria (None Seen) /HPF Urine Culture Reflexed (NO) - Progress Progress: improved Progress Note: 02/16/24 11:56 Repeat EKG @ 1151: sinus rhythm, rate = 63, QTc = 438. 02/16/24 11:58 Pt states chest pressure is gone. Counseled pt/family regarding: lab results, diagnosis, need for follow-up, rad results Medical Desision Making - Diagnostic Testing Diagnostic test were ordered, analyzed, and reviewed by me: Yes Radiological Interpretation: Discussed w/ radiologist - Departure Departure Disposition: Home Clinical Impression: Chest pressure Condition: Stable Critical Care Time: No Referrals: JAIME COLE MD [Primary Care Provider] - Follow up/PCP as directed Instructions: Chest Pain (DC) Additional Instructions: Follow up with private doctor tomorrow.
[2024-02-16] MEDS ORDERED: BABY ASPIRIN 81 MG CHEW ONE (07:11)
[2024-02-16] MEDS ORDERED: Nitrostat 0.4 MG (ED) SL ONE (07:11)
[2024-02-16] MEDS: BABY ASPIRIN 81 MG CHEW PO ONE (07:12)
[2024-02-16] MEDS: Nitrostat 0.4 MG (ED) SL ONE (07:12)
[2024-02-16 07:19] LABS: BASOPHIL % 0.7 % (0.2-1.2); Basophil (Absolute #) 0.05 x10^3/uL (0.01-0.08); Eosinophil % 1.8 % (0.8-7.0); Eosinophil (Absolute #) 0.12 x10^3/uL (0.04-0.54); Hematocrit 49.6 % (40.1-51.0); Hemoglobin 16.9 g/dL (13.7-17.5); IMMATURE GRAN # 0.02 x10^3u/L (0.001-0.031); IMMATURE GRAN % 0.3 % (0.001-0.429); Lymphocytes % 32.8 % (21.8-53.1); Mean Cell Volume 83.4 fL (79.0-92.2); Mean Corpuscular Hemoglobin 28.4 pg (25.7-32.2); Mean Corpuscular Hgb Concent. 34.1 g/dL (32.3-36.5); Mean Platelet Volume 10.4 fL (9.4-12.4); Monocyte (Absolute #) 0.51 x10^3/uL (0.30-0.82); Monocytes % 7.6 % (5.3-12.2); Neutrophil % 56.8 % (34.0-67.9); Platelet Count 183 x10^3/uL (163-337); Red Blood Count 5.95 x10^6/uL (4.63-6.08); Red Cell Distribution Width 12.5 % (11.6-14.4); White Blood Count 6.7 x10^3/uL (4.23-9.07)
[2024-02-16 07:33] LABS: ALBUMIN 4.7 g/dL (3.5-5.0); ANION GAP 19.5 MEQ/L (5-15); BILIRUBIN,TOTAL 0.8 mg/dL (0.2-1.3); Calcium 10.1 mg/dL (8.4-10.2); Creatinine 1 1.18 mg/dL (0.66-1.25); EST GLOMERULAR FILTRATION RATE 74.7 ML/MIN; MAGNESIUM 2.1 mg/dL (1.6-2.3); Total Protein 8.2 g/dL (6.3-8.2)
--- NOTE | 2024-02-16 07:38 | XRAY ---
Indication: Chest pain. Comparison: January 26, 2024 PA/lateral chest again demonstrates minimal right middle lobe subsegmental atelectasis/scarring. Remaining heart and lungs normal. No new/acute findings.
[2024-02-16 08:45] LABS: Bacteria None Seen /HPF (None Seen); Epithelial Cells None Seen /HPF (None Seen); Hyaline Casts NONE SEEN /LPF (0-2); RBC 0-2 /HPF (0-5); WBC 0-2 /HPF (0-5)
[2024-02-16 08:53] LABS: Appearance Clear (Clear); Bilirubin Negative (Negative); Blood Negative (Negative); Glucose, Urine Negative (Negative); Ketones Negative (Negative); Leukocyte Esterase Negative (Negative); Nitrite Negative (Negative); Protein,Urine Dip Negative (Negative); Urobilinogen 0.2 mg/dL (0.2)
[2024-02-16 10:02] VITALS: PULSE 58; RESP 15
--- NOTE | 2024-02-16 10:58 | XRAY ---
CLINICAL HISTORY: Elevated amylase; abdominal pain COMPARISON: Prior CT dated 06/21/2023 TECHNIQUE: Non-contrast CT of the abdomen and pelvis was performed, with the following protocol: axial images, and reconstructed coronal and sagittal images. One of the following dose reduction techniques was utilized for this exam: Automated exposure control, adjustment of the mA and/or kV according to patient size, and use of iterative reconstruction. FINDINGS: Abdomen: Liver: Enlarged liver, the right lobe span is 21 cm with reduced attenuation. No focal lesions, cysts, or masses were identified. Gallbladder and Biliary System: The gallbladder is surgically removed. Pancreas: Pancreatic head, body, and tail are visualized and appear normal in size and density. No pancreatic masses or calcifications were noted. Spleen: Normal in size, shape, and density. Few calcific splenic foci, could be granulomas. No other splenic lesions or masses were identified. Kidneys and Adrenal Glands: Both kidneys are normal in size, shape, and position. Cortical thickness is within normal limits. No renal calculi or hydronephrosis. Adrenal glands are unremarkable. Abdominal Aorta and Vessels: The abdominal aorta and major branches are patent without evidence of an aneurysm or significant atherosclerosis. Sliding hiatus hernia noted. Pelvis: Urinary Bladder: Normal in contour and wall thickness. No intraluminal lesions. Prostate: Normal in size and contour. No masses or abnormal thickening. Seminal Vesicles: Normal appearance without abnormal enlargement or mass. Peritoneal and Retroperitoneal Structures: No free fluid or abnormal fluid collections were identified within the abdomen or pelvis. No lymphadenopathy was noted. Bowel: Few non-complicated colonic diverticulosis. The visualized bowel loops are normal in caliber and appearance. No evidence of bowel obstruction or wall thickening. Bones and Soft Tissues: Few pelvic calcific phleboli. Pelvic bones and soft tissues are unremarkable. No fractures or abnormal masses were identified. Thoracic and lumbar spine degenerative changes with osteophytes. IMPRESSION: Pancreatic head, body, and tail are visualized and appear normal in size and density. No peripancreatic fat stranding seen. Fatty hepatomegaly. Cholecystectomy. Few non-complicated colonic diverticulosis. Few calcific splenic foci could be granulomas. Sliding hiatus hernia noted. No time interval changes. Electronically Signed by: Yari Woodson MD. (02/16/2024 10:55:03 EDT)
[2024-02-16 11:12] VITALS: O2SAT 96
[2024-02-16 12:14] VITALS: BP 119/76
== END 2024-02-16 12:18 | disposition home or self-care (01) ==
LOC: ED 06:48
DX: R07.9 Chest pain, unspecified (principal); R06.02 Shortness of breath; E78.5 Hyperlipidemia, unspecified; I10 Essential (primary) hypertension; Z79.899 Other long term (current) drug therapy
CPT/HCPCS: 36000; 36415; 71046; 74176; 80053; 81001; 82150; 83690; 83735; 84484; 85025; 85379; 93005; 99284; A9270-GY